=== PATIENT | female | born 1980 | race African-American/Black ===

== ENCOUNTER 2021-05-21 21:15 | Emergency (ER) | payer OTHER, SELFPAY ==
[2021-05-21 21:31] VITALS: BP 159/91; PULSE 79; RESP 16; TEMP 36.9; O2SAT 100; BMI 31.5
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
[2021-05-21] MEDS: Cyclobenzaprine HCl 10 MG TABLET PO (22:26)
[2021-05-21] MEDS: Ibuprofen 600 MG TABLET PO (22:26)
[2021-05-21 22:27] VITALS: BP 160/97; PULSE 79; RESP 16; TEMP 36.8; O2SAT 100
== END 2021-05-21 22:33 | disposition home or self-care (01) ==
PROVIDERS: Emergency Provider Internal Medicine
DX: S19.9XXA Unspecified injury of neck, initial encounter (principal); M54.2 Cervicalgia; V43.52XA Car driver injured in collision with other type car in traffic accident, initial encounter; Y93.9 Activity, unspecified; Y92.410 Unspecified street and highway as the place of occurrence of the external cause; Y99.9 Unspecified external cause status; Z79.899 Other long term (current) drug therapy
CPT/HCPCS: 99283; 99284

== ENCOUNTER 2023-03-29 10:26 | Outpatient (REF) | payer OTHER, SELFPAY ==
[2023-03-29 11:15] LABS: MANUAL DIFF FLAG NO
[2023-03-29 11:39] LABS: Basophils Percent Auto 0.5 % (0-2); Eosinophils Absolute Auto 0.1 X10*3/uL (0.0-0.4); Eosinophils Percent Auto 1.5 % (0-4); Hematocrit 38.8 % (37.0-47.0); Hemoglobin 12.7 g/dl (12.0-16.0); Imm Gran Abs Auto 0.03 X10*3/uL (0.00-0.03); Imm Gran Pct Auto 0.8 % (0.0-0.4); Lymphocytes Absolute Auto 0.4 X10*3/uL (1.2-4.9); Lymphocytes Percent Auto 9.2 % (20-40); Mean Corpuscular HGB Conc 32.7 g/dl (31.0-35.0); Mean Corpuscular Hemoglobin 33.2 pg (27.0-33.0); Mean Corpuscular Volume 101.6 fL (80.0-98.0); Mean Platelet Volume 9.6 fL (9.4-12.3); Monocytes Absolute Auto 0.6 X10*3/uL (0.1-1.2); Monocytes Percent Auto 14.8 % (2-11); Neutrophils Absolute Auto 2.9 x10*3/uL (2.0-8.3); Neutrophils Percent Auto 73.2 % (45-73); Platelet Count 322 X10*3/uL (160-400); Red Blood Count 3.82 X10*6/uL (4.20-5.50); Red Cell Distribution Width 14.2 % (11.0-16.0); White Blood Count 3.9 X10*3/uL (4.8-10.8)
[2023-03-29 11:53] LABS: Estimated Average Glucose 91 mg/dL; Hemoglobin A1c % 4.8 %
[2023-03-29 12:32] LABS: ~HepC Num1 0.07 S/CO (0.00-0.79); ~Hepatitis C Antibody Nonreactive (Nonreactive)
[2023-03-29 12:33] LABS: HIV AB/AG Nonreactive (Nonreactive)
[2023-03-29 12:40] LABS: TSH reflex Free T4 0.39 uIU/mL (0.32-4.0)
[2023-03-29 12:47] LABS: Alanine Aminotransferase 20 U/L (0-31); Albumin Level 3.9 g/dL (3.5-5.0); Alkaline Phosphatase 80 U/L (39-117); Anion Gap 11 (12-20); Aspartate Amino Transferase 28 U/L (5-31); Bilirubin Direct 0.1 mg/dL (0.0-0.5); Bilirubin Total 0.3 mg/dL (0.0-1.0); Blood Urea Nitrogen 17 mg/dL (9-16); Calcium 9.1 mg/dL (8.4-10.2); Carbon Dioxide 25 mmol/L (22-29); Chloride 108 mmol/L (96-108); Cholesterol 164 mg/dL; Estimated Glomerular Filt Rate > 60; Glucose Random 89 mg/dL (60-115); HDL Cholesterol 58 mg/dL; LDL Cholesterol Calculated 89 mg/dl; Potassium 4.4 mmol/L (3.3-5.1); Sodium 140 mmol/L (135-145); Total Protein 7.4 g/dL (6.5-8.0); Triglycerides 85 mg/dL
== END 2023-03-29 10:27 | disposition home or self-care (01) ==
LOC: HO.HHCL 10:26
PROVIDERS: PCP Internal Medicine; Visit Provider Student in an Organized Health Care Education/Training Program
DX: Z00.00 Encounter for general adult medical examination without abnormal findings (principal); Z11.4 Encounter for screening for human immunodeficiency virus [HIV]; E66.9 Obesity, unspecified; I10 Essential (primary) hypertension
CPT/HCPCS: 36415; 80048; 80061; 80076; 83036; 84443; 85025; 86803; 87389

== ENCOUNTER 2025-07-20 13:46 | Outpatient (REF) | payer SELFPAY ==
--- OUTSIDE RECORDS SUMMARY | 2025-07-20 14:00 | XMS_ITS | Encounter Summary ---
Author Organization [facility] Address [address] [place] [address] Care Team Providers Care Investment Banking Analyst Name Role Phone Yanelis Marie MD Primary Care Provide r Reason for Referral * Imaging (Routine) - Authorized Specialty Diagnoses / Procedures Referred By Contac t Referred To Contact Radiology Diagnoses Encounter for screening mammogram for malignant neoplasm of breast Procedures BI Mammogram Screening Tomosynthesis Bilateral Yanelis Marie MD [address] [place] [address] Phone: tel: fax: [address] Phone: tel: fax: Referral ID Status Reason Start Date Expiration Date V isits Requested Visits Authorized [id number] Authorized 07/20/2025 07/20/2026 1 1 * Consultation (Routine) - Authorized Specialty Diagnoses / Procedures Referred By Contac t Referred To Contact Pharmacy Diagnoses Tobacco dependence Yanelis Marie MD [address] [place] [address] Phone: tel: fax: Referral ID Status Reason Start Date Expiration Date Visits Requested Visits Authorized [id number] Authorized Consult and Treat 07/20/2025 07/20/2026 6 6 Encounter Details Date Type Department Care Team (Late st Contact Info) Description 07/20/2025 2:00 PM EST Office Visit [facility] [address] [place] [address] Yanelis Marie MD [address] [place] [address] Screening for colon cancer (Primary Dx); Tobacco dependence; Encounter for screening mammogram for malignant neoplasm of breast; Class 1 obesity due to excess calories with serious comorbidity and body mass index (BMI) of 32.0 to 32.9 in adult; Encounter for preventive care; Dietary counseling; Exercise counseling Social History Tobacco Use Types Packs/Day Years Used Date Smoking Tobacco: Every Day Cigarettes Passive Smoke Exposure: Current Smokeless Tobacco: Never Depression Answer Date Recorded Patient Health Questionnaire-9 Score 7 07/20/2025 Patient Health Questionnaire-9 Score 7 07/20/2025 Last PHQ-9: Questionnaire Data Not on file 1 09/19/2024 Housing Stability Answer Date Recorded What is your housing situation today? I have jaden perez 07/20/[address] you li ve. Do you have problems with any of the following? None of the above 07/20/2025 Food Insecurity Answer Date Recorded Within the past 12 months, y ou worried that your food would run out before you got money to buy more: Never True 07/20/2025 Within the past 12 months,th e food you bought just didn't last and you didn't have enough money to get more: Never True Transportation Answer Date Recorded In the past 12 months, has l ack of transportation kept you from medical appts, meetings, work or from getting things needed for daily living? No 07/20/2025 Utilities Answer Date Recorded In the past 12 months, has t he electric, gas, oil or water company threatened to shut off services in your home? Yes 07/20/2025 Depression Answer Date Recorded Patient Health Questionnaire-2 Score 2 07/20/2025 Internet Access Answer Date Recorded Internet Access Q1 Yes 07/20/2025 Internet Access Q2 Not on file 07/20/2025 Comments Unknown Sex and Gender Information Value Date Recorded Sex Assigned at Female 07/06/2022 10:21 AM EDT Legal Sex Female 10:21 AM EDT Gender Identity Female 07/06/2022 10:21 AM EDT Sexual Orientation Straight 07/06/2022 10 :21 AM EDT documented as of this encounter Last Filed Vital Signs Vital Sign Reading Time Taken Comments Blood Pressure 142/94 07/20/2025 2:12 PM EST Pulse 68 07/20/2025 2:12 PM EST Temperature 36.5 C (97.7 F) 07/20/2025 2:12 PM EST Respiratory Rate 18 07/20/2025 2:12 PM EST Oxygen Saturation - - Inhaled Oxygen Concentration - - Weight 104 kg (229 lb 6.4 oz) 07/20/2025 2:12 PM EST Height 177.8 cm (5' 10 ) 07/20/2025 2:12 PM EST Body Mass Index 32.92 07/20/2025 2:12 PM EST documented in this encounter Functional Status * Over the past 2 weeks, how often have you been bothered by any of the following problems? Question Answer Date of Assessment Author Patient Health Questionnaire-2 Score 2 07/07 2:52 PM EST Tasha Martinez MA * Little interest or pleasure in doing things Answer Date of Assessment Author Several days 07/20/2025 2:52 PM Mic Poe ra, [place] * Feeling down, depressed, or hopeless Answer Date of Assessment Author Several days 07/20/2025 2:52 PM Mic Poe ra, [place] * Trouble falling or staying asleep, or sleeping too much Answer Date of Assessment Author Several days 07/20/2025 2:52 PM Mic Poe ra, [place] * Feeling tired or having little energy Answer Date of Assessment Author Several days 07/20/2025 2:52 PM Mic Poe ra, [place] * Poor appetite or overeating Answer Date of Assessment Author Several days 07/20/2025 2:52 PM Mic Poe ra, [place] * Feeling bad about yourself - or that you are a failure or have let yourself or your family down Answer Date of Assessment Author Several days 07/20/2025 2:52 PM Mic Poe ra, [place] * Trouble concentrating on things, such as reading the newspaper or watching television Answer Date of Assessment Author Several days 07/20/2025 2:52 PM Mic Poe ra, [place] * Moving or speaking so slowly that other people could have noticed? Or the opposite - being so fidgety or restless that you have been moving around a lot more than usual. Answer Date of Assessment Author Not at all 07/20/2025 2:52 PM Mic Poe ra, [place] * Thoughts that you would be better off or hurting yourself in some way Answer Date of Assessment Author Not at all 07/20/2025 2:52 PM Mic Poe ra, [place] * Patient Health Questionnaire-9 Score Answer Date of Assessment Author 7 07/20/2025 2:52 PM Mic Poe ra, [place] documented as of this encounter Progress Notes * Yanelis Pennington MD - 07/20/2025 2:00 PM EST SUBJECTIVE: Sarah Howard is a 45 y.o. year old female who presents for Physical . 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 Diet:regular Exercise:sedentary LMP:stop having her menstrual period after chemo (cervical cancer) Pap Smear:she had a PAP done this year when she went to her oncology appointment Cologuard ordered Mammogram ordered today Hospitalizations/Surgeries: on chart Eye Care:declines referral Dental Care:up to date PMHx:on chart FMHx:on chart Immunizations: Declines immunizations Sarah Howard, 45 years Weight Management - Expressed desire to lose weight and requested Ozempic or Zepbound for weight loss - Insurance denied coverage for Ozempic and Zepbound - Previous prescription for weight loss medication given at last physical, but insurance did not cover - Reports difficulty eating healthy foods and lack of exercise due to pain from inactivity - Interested in trying phentermine and Topamax for weight loss Gynecologic History - History of cervical cancer with surgical removal of cervix - No current menstruation since treatment - Continues to undergo Pap smears - Last oncology visit occurred earlier this year (2024) Smoking - Smokes approximately one pack of cigarettes per day - Expressed interest in quitting smoking and requested nicotine patch COVID-19 - History of COVID-19 infection Misc - No new surgeries since last visit - No current vision issues or need for glasses - Recent dental visit at [facility] Social History Social History Narrative Not on file Problem List[1] Depressive disorder Essential hypertension Vitamin D deficiency Abnormal uterine bleeding (AUB) Cervical cancer (CMS/HCC) (HCC) Cervical lesion Class 1 obesity Herpes simplex virus (HSV) infection Papanicolaou smear of cervix with high grade squamous intraepithelial lesion (HGSIL) Tubo-ovarian abscess Vaginal trichomoniasis Tobacco dependence Encounter for preventative adult health care examination Encounter for preventive care Chronic left hip pain Class 1 obesity due to excess calories with serious comorbidity and body mass index (BMI) of 32.0 to 32.9 in adult Encounter for screening mammogram for malignant neoplasm of breast BMI 34.0-34.9,adult Hematuria Tobacco user Family History[2] Review of Systems Constitutional: Negative. HENT: Negative. Respiratory: Negative. Cardiovascular: Negative. OBJECTIVE: Vitals: 07/20/25 1412 BP: (!) 142/94 BP Location: Left arm Patient Position: Sitting BP Cuff Size: Adult Pulse: 68 Resp: 18 Temp: 97.7 ??F (36.5 ??C) TempSrc: Oral Weight: 229 lb 6.4 oz (104 kg) Height: 5' 10 (1.778 m) Physical Exam Constitutional: Appearance: Normal appearance. Cardiovascular: Rate and Rhythm: Normal rate and regular rhythm. Pulmonary: Effort: Pulmonary effort is normal. Breath sounds: Normal breath sounds. Abdominal: General: Abdomen is flat. Palpations: Abdomen is soft. Musculoskeletal: Right lower leg: No edema. Left lower leg: No edema. Neurological: Mental Status: She is alert. Follow Up: No follow-ups on file. Medications Ordered Prior to Encounter[3] Problem List Items Addressed This Visit Tobacco dependence Relevant Medications nicotine (Nicoderm CQ) 21 MG/24HR patch Other Relevant Orders Referral to Pharmacy CDTM Encounter for screening mammogram for malignant neoplasm of breast Relevant Orders BI Mammogram Screening Tomosynthesis Bilateral Class 1 obesity due to excess calories with serious comorbidity and body mass index (BMI) of 32.0 to 32.9 in adult Relevant Medications phentermine 15 MG capsule topiramate (Topamax) 25 MG tablet Encounter for preventive care Other Visit Diagnoses Screening for colon cancer - Primary Relevant Orders Cologuard?? colon cancer screening Dietary counseling Relevant Medications phentermine 15 MG capsule topiramate (Topamax) 25 MG tablet Exercise counseling Relevant Medications phentermine 15 MG capsule topiramate (Topamax) 25 MG tablet Tobacco dependence: - Tobacco dependence present, patient smokes approximately one pack per day and expresses readinessto quit. - Prescribed nicotine patch for smoking cessation. Referral placed to smoking cessation support team for follow-up and additional management. Screening for colon cancer: - Colon cancer screening indicated due to age. - Recommended home-based colorectal cancer screening with Cologuard kit. Provided instructions and advised use of online video for guidance. Encounter for screening mammogram for malignant neoplasm of breast: - Breast cancer screening due, no prior mammogram reported. - Ordered screening mammogram. Class 1 obesity due to excess calories with serious comorbidity and body mass index (BMI) of 32.0 to 32.9 in adult: - Class 1 obesity present, patient desires weight loss and has insurance denial for GLP-1 agonists.Phentermine prescribed for weight loss. Topiramate prescribed as adjunct therapy to enhance weight loss effect. - Prescribed phentermine and topiramate. Advised to take topiramate at bedtime. Scheduled follow-upphone appointment to monitor response and side effects. Instructed to weigh self at home prior to follow-up. Plan to adjust medication or submit pre-authorization for alternative therapy if inadequate response after 3 months. - Risks and side effects: Discussed potential side effects of phentermine including palpitations, anxiety, insomnia, and dry mouth. Discussed possible drowsiness with topiramate and advised bedtime dosing. Encounter for preventive care: - Preventive care addressed during visit. - Reviewed need for dental and vision care. Offered influenza, COVID-19, and pneumococcal vaccines;patient declined. Provided physical summary for work and instructions for obtaining official physical documentation from medical records. [1] Patient Active Problem List Diagnosis Depressive disorder Essential hypertension Vitamin D deficiency Abnormal uterine bleeding (AUB) Cervical lesion Class 1 obesity Herpes simplex virus (HSV) infection Papanicolaou smear of cervix with high grade squamous intraepithelial lesion (HGSIL) Tubo-ovarian abscess Vaginal trichomoniasis Tobacco dependence Encounter for preventative adult health care examination Encounter for preventive care Chronic left hip pain Class 1 obesity due to excess calories with serious comorbidity and body mass index (BMI) of 32.0 to 32.9 in adult Encounter for screening mammogram for malignant neoplasm of breast BMI 34.0-34.9,adult Hematuria Tobacco user [2] No family history on file. [3] Current Outpatient Medications on File Prior to Visit Medication Sig Dispense Refill Blood Pressure kit 1 each 1 (one) time per week. 1 kit 0 buPROPion SR (Wellbutrin SR) 150 MG 12 hr tablet Take 1 tablet by oral route every morning for 3 days. If tolerating well may increase to twice daily 60 tablet 1 Diclofenac Sodium 1 % gel Apply to left shoulder bid prn pain 50 g 1 losartan (Cozaar) 50 MG tablet Take 1 tablet (50 mg) by mouth Once per day. 30 tablet 3 nicotine (Nicoderm, Step 1) 21 MG/24HR patch Place 1 patch on the skin 1 (one) time each day at thesame time. 30 patch 11 nicotine polacrilex (Nicorette) 4 MG gum Chew 1 each (4 mg) if needed for smoking cessation. 100 each 2 Tirzepatide-Weight Management (Zepbound) 2.5 MG/0.5ML solution auto-injector Inject 0.5 mL (2.5 mg)under the skin 1 (one) time per week. 2 mL 3 Tirzepatide-Weight Management (Zepbound) 5 MG/0.5ML solution auto-injector Inject 0.5 mL (5 mg) under the skin 1 (one) time per week. 2 mL 0 No current facility-administered medications on file prior to visit. documented in this encounter Plan of Treatment Upcoming Encounters Date Type Department Care Team (Late st Contact Info) Description 08/28/2025 2:30 PM EST Telemedicine [facility] [address] [place] [address] Yanelis Marie MD [address] [place] [address] Scheduled Orders Name Type Priority Associated Diagnoses Orde r Schedule Cologuard colon cancer screening Lab Routine Screening for colon cancer Ordered: 07/20/2025 BI Mammogram Screening Tomosynthesis Bilateral Imaging Routine Encounter for screening mammogram for malignant neoplasm of breast Expected: 07/20/2025, Expires: 09/19/2026 Scheduled Referrals Name Type Priority Associated Diagnoses Orde r Schedule Referral to Pharmacy CDTM Outpatient Referral Routine Tobacco dependence Ordered: 07/20/2025 documented as of this encounter Visit Diagnoses Diagnosis Screening for colon cancer- Primary Special screening for malignant neoplasms, colon Tobacco dependence Tobacco use disorder Encounter for screening mammogram for malignant neoplasm of breast Class 1 obesity due to excess calories with serious comorbidity and body mass index (BMI) of 32.0 to 32.9 in adult Encounter for preventive care Dietary counseling Dietary surveillance and counseling Exercise counseling documented in this encounter Additional Health Concerns Assessment Noted Time PHQ-9 Depression Total Score: 7 07/20/20 25 2:52 PM EST documented as of this encounter Care Teams Investment Banking Analyst Relationship Specialty Start Date End Date Yanelis Marie MD [address] [place] [id number] PCP - General Family Medicine 05/18/18 documented as of this encounter
[2025-07-20 16:23] LABS: Hematocrit 41.5 % (37.0-47.0); Hemoglobin 13.4 g/dl (12.0-16.0); Mean Corpuscular HGB Conc 32.3 g/dl (31.0-35.0); Mean Corpuscular Hemoglobin 29.8 pg (27.0-33.0); Mean Corpuscular Volume 92.4 fL (80.0-98.0); NRBC Abs Auto 0.000 X10*3/uL (0.0-0.012); NRBC Pct Auto 0.0 /100WBC (0.0-0.2); Platelet Count 372 X10*3/uL (160-400); Red Blood Count 4.49 X10*6/uL (4.20-5.50); White Blood Count 6.7 X10*3/uL (4.8-10.8)
[2025-07-20 16:34] LABS: Microalbum/Creatinine Ratio Ur 14.9 ug/mg cr (<30)
[2025-07-20 16:57] LABS: Alanine Aminotransferase 17 U/L (0-31); Albumin Level 4.4 g/dL (3.5-5.0); Alkaline Phosphatase 120 U/L (39-117); Anion Gap 11 (12-20); Aspartate Amino Transferase 30 U/L (5-31); Blood Urea Nitrogen 13 mg/dL (9-16); Calcium 9.1 mg/dL (8.4-10.2); Carbon Dioxide 27 mmol/L (22-29); Chloride 105 mmol/L (96-108); Cholesterol 157 mg/dL (<200); Estimated Glomerular Filt Rate > 60; HDL Cholesterol 59 mg/dL (>40); Potassium 4.2 mmol/L (3.3-5.1); Sodium 139 mmol/L (135-145); Total Protein 7.8 g/dL (6.5-8.0); Triglycerides 113 mg/dL (<150)
[2025-07-20 17:00] LABS: Free T4 (Free Thyroxine) 0.93 ng/dL (0.71-1.85); Thyroid Stimulating Hormone 0.84 uIU/mL (0.32-4.0)
--- OUTSIDE RECORDS SUMMARY | 2025-07-20 20:07 | XMS_ITS | Encounter Summary ---
Author Organization [facility] [employer] Address [address] [place] [address] Care Team Providers Care Armored Cable Machine Operator Name Role Phone Yanelis Marie MD Primary Care Provide r Reason for Visit * Reason Comments Med Refill Encounter Details Date Type Department Care Team ([facility] Contact Info) Description 07/20/2025 Refill [facility] [address] [place] [address] Mildred Juarez DO [address] [place] [address] Essential hypertension Social History Tobacco Use Types Packs/Day Years [...] AM EDT documented as of this encounter Functional Status * Over the past 2 weeks, how often have you been bothered by any of the following problems? Question Answer Date of Assessment Author Patient Health Questionnaire-2 Score 2 07/07 2:52 PM Tasha Poe MA * Little interest or pleasure in [...] Author Not at all 07/20/2025 2:52 PM EST Mic Martinez ra, [place] * Thoughts that you would be better off or hurting yourself in some way Answer Date of Assessment Author Not at all 07/20/2025 2:52 PM EST Mic Martinez ra, [place] * Patient Health Questionnaire-9 Score Answer Date of Assessment Author 7 07/20/2025 2:52 PM Mic Poe ra, [place] documented as of this encounter Plan of Treatment Upcoming Encounters Date Type Department Care Team (Late st Contact Info) Description 08/28/2025 2:30 PM EST Telemedicine [facility] [address] [place] [address] Yanelis Marie MD [address] [place] [address] documented as of this encounter Visit Diagnoses Diagnosis Essential hypertension Unspecified essential hypertension documented in this encounter Additional Health Concerns Assessment Noted Time PHQ-9 Depression Total Score: 7 07/20/20 25 2:52 PM EST documented as of this encounter Care Teams Armored Cable Machine Operator Relationship Specialty Start Date End Date Yanelis Marie MD [address] [place] [address] PCP - General Family Medicine 05/18/18 documented as of this encounter
--- OUTSIDE RECORDS SUMMARY | 2025-07-20 20:07 | XMS_ITS | Encounter Summary ---
Author Organization [employer] Address [address] [facility] [address] [place] [address] Care Team Providers Care Donkey Doctor Name Role Phone Yanelis Marie MD Primary Care Provide r Encounter Details Date Type Department Care Team (Latest Contact Info) Description 07/20/2025 Travel Social History Tobacco Use Types Packs/Day Years [...] of Assessment Author 7 07/20/2025 2:52 PM EST Mic Martinez ra, [place] documented as of this encounter Plan of Treatment Upcoming Encounters Date Type Department Care Team (Late st Contact Info) Description 08/28/2025 2:30 PM EST Telemedicine [facility] [address] [place] [address] Yanelis Marie MD [address] [place] [address] documented as of this encounter Visit Diagnoses Not on filedocumented in this encounter Additional Health Concerns Assessment Noted Time PHQ-9 Depression Total Score: 7 07/20/20 25 2:52 PM EST documented as of this encounter Care Teams Donkey Doctor Relationship Specialty Start Date End Date Yanelis Marie MD [address] [place] [id number] PCP - General Family Medicine 05/18/18 documented as of this encounter
--- OUTSIDE RECORDS SUMMARY | 2025-07-20 20:07 | XMS_ITS | Encounter Summary ---
Author Organization [employer] Address [address] [place] [address] Care Team Providers Care Tag Maker Name Role Phone Yanelis Marie MD Primary Care Provide r Reason for Visit * Reason Onset Date Comments Med Refill 06/12/2025 Encounter Details Date Type Department Care Team ([facility] st Contact Info) Description 06/12/2025 Refill [facility] MEDICINE [address] [place] [address] Yanelis Marie MD [address] [place] [address] Social History Tobacco Use Types Packs/Day Years Used Date Smoking Tobacco: Every Day Cigarettes Passive Smoke Exposure: Current Smokeless Tobacco: Never Depression Answer Date Recorded Patient Health Questionnaire-9 Score 0 03/30/2024 Patient Health Questionnaire-9 Score 0 03/30/2024 Last PHQ-9: Questionnaire Data Not on file 0 03/30/2024 Housing Stability Answer Date Recorded What is your housing situation today? I have jaden perez 03/30/[address] you li ve. Do you have problems with any of the following? None of the above 03/30/2024 Food Insecurity Answer Date Recorded Within the past 12 months, y ou worried that your food would run out before you got money to buy more: Never True 03/30/2024 Within the past 12 months,th e food you bought just didn't last and you didn't have enough money to get more: Never True Transportation Answer Date Recorded In the past 12 months, has l ack of transportation kept you from medical appts, meetings, work or from getting things needed for daily living? No 03/30/2024 Utilities Answer Date Recorded In the past 12 months, has t he electric, gas, oil or water company threatened to shut off services in your home? No 03/30/2024 Depression Answer Date Recorded Patient Health Questionnaire-2 Score 0 03/30/2024 Internet Access Answer Date Recorded Internet Access Q1 No 05/05/2024 Internet Access Q2 I do not want or need it 04/08 Comments Unknown Sex and Gender Information Value Date Recorded Sex Assigned at Female 07/06/2022 10:21 AM EDT Legal Sex Female 10:21 AM EDT Gender Identity Female 07/06/2022 10:21 AM EDT Sexual Orientation Straight 07/06/2022 10 :21 AM EDT documented as of this encounter Miscellaneous Notes * Telephone Encounter - Mildred Ludwig LPN - 06/12/2025 9:33 AM EDT Last seen 04/19/25. * Telephone Encounter - Kellie Kumar - 06/12/2025 9:28 AM EDT TC from pt requesting medication refill. Medications needing refill : - Tirzepatide-Weight Management (Zepbound) 2.5 MG/0.5ML solution auto-injector To be sent to: - [id number] - [place] - [address] [facility] documented in this encounter Plan of Treatment Upcoming Encounters Date Type Department Care Team (Late st Contact Info) Description 08/28/2025 2:30 PM EST Telemedicine [facility] MEDICINE [address] [place] [address] Yanelis Marie MD [address] [place], [place] [id number] documented as of this encounter Visit Diagnoses Not on filedocumented in this encounter Additional Health Concerns Assessment Noted Time PHQ-9 Depression Total Score: 0 03/30/20 24 1:29 PM EDT documented as of this encounter Care Teams Tag Maker Relationship Specialty Start Date End Date Yanelis Marie MD [address] [place] [address] PCP - General Family Medicine 05/18/18 documented as of this encounter
--- OUTSIDE RECORDS SUMMARY | 2025-07-20 20:07 | XMS_ITS | Clinical Summary ---
Author Organization [employer] Address [address] [facility] [address] [place] [address] Care Team Providers Care Kiln Repairer Name Role Phone Yanelis Marie MD Primary Care Provide r Allergies No known active allergies Medications nicotine polacrilex (Nicorette) 4 MG gum Chew 1 each (4 mg) if needed for smoking cessation. 100 each 2 3 Active nicotine (Nicoderm, Step 1) 21 MG/24HR patchIndications: Nicotine Dependence Place 1 patch on the skin 1 (one) time each day at the same time. 30 patch 11 3 Active buPROPion SR (Wellbutrin SR) 150 MG 12 hr tabletIndications :Tobacco dependence Take 1 tablet by oral route every morning for 3 days. If tolerating well may increase to twice daily 60 tablet 1 4 Active Tirzepatide-Weigh t Management (Zepbound) 2.5 MG/0.5ML solution auto-injector Inject 0.5 mL (2.5 mg) under the skin 1 (one) time per week. 2 mL 3 5 Active Blood Pressure kit 1 each 1 (one) time per week. 1 kit 5 Active Diclofenac Sodium 1 % gelIndications:Ac [place] pain of left shoulder Apply to left shoulder bid prn pain 50 g 1 5 Active losartan (Cozaar) 50 MG tabletIndications :Essential hypertension Take 1 tablet (50 mg) by mouth Once per day. 30 tablet 3 5 04/19/20 26 Active Tirzepatide-Weigh t Management (Zepbound) 5 MG/0.5ML solution auto-injectorIndi cations:Class 1 obesity due to excess calories with serious comorbidity and body mass index (BMI) of 32.0 to 32.9 in adult Inject 0.5 mL (5 mg) under the skin 1 (one) time per week. 2 mL 5 Active nicotine (Nicoderm CQ) 21 MG/24HR patchIndications: Tobacco dependence Place 1 patch on the skin 1 (one) time each day at the same time. 30 patch 5 08/19/20 25 Active phentermine 15 MG capsuleIndication s:Class 1 obesity due to excess calories with serious comorbidity and body mass index (BMI) of 32.0 to 32.9 in adult Take 1 capsule (15 mg) by mouth before breakfast. 30 capsule 1 5 09/18/19 26 Active topiramate (Topamax) 25 MG tabletIndications :Class 1 obesity due to excess calories with serious comorbidity and body mass index (BMI) of 32.0 to 32.9 in adult Take 1 tablet (25 mg) by mouth every 12 (twelve) hours. 60 tablet 5 07/20/20 26 Active Active Problems Problem Noted Date Diagnosed Date Hematuria 07/19/2025 Tobacco user 07/19/2025 BMI 34.0-34.9,adult 12/05/2024 Encounter for preventive care 03/30/2024 Assessment & Plan (03/30/2024 4:15 PM EDT): See HPI Chronic left hip pain 03/30/2024 Class 1 obesity due to exces s calories with serious comorbidity and body mass index (BMI) of 32.0 to 32.9 in adult 03/30/2024 Encounter for screening mamm ogram for malignant neoplasm of breast 03/30/2024 Encounter for preventative adult health care exa mination 03/29/2023 Assessment & Plan (03/29/2023 10:16 AM EDT): Please refer to HPI Abnormal uterine bleeding (AUB) 01/01/2023 Cervical lesion 01/01/2023 Class 1 obesity 01/01/2023 Assessment & Plan (03/29/2023 10:14 AM EDT): Today extensive discussion was done about life style modifications I advise healthy diet (low calorie) and cardiovascular exercise Herpes simplex virus (HSV) infection 01/01/2023 Papanicolaou smear of cervix with high grade squamous intraepithelial lesion (HGSIL) 01/01/2023 Tubo-ovarian abscess 01/01/2023 Vaginal trichomoniasis 01/01/2023 Tobacco dependence 01/01/2023 Overview (01/01/2023): Highly motivated to quit. Currently at 20 cig a day. Start nicotine patch with nicotine gum. Assessment & Plan (05/07/2023 2:00 PM EDT): Currently at 5 cigarettes daily, patient is cutting down She was congratulated and encourage to continue with good work Assessment & Plan (03/29/2023 10:15 AM EDT): Patient has cut down to 10 cigarettes, she will continue with nicotine patches Assessment & Plan (02/11/2023 12:12 PM EDT): Patient will like to continue with current interventions Assessment & Plan (01/01/2023 9:18 AM EDT): Highly motivated to quit. Currently at 20 cig a day. Start nicotine patch with nicotine gum. Depressive disorder 11/19/2022 Assessment & Plan (03/30/2024 4:15 PM EDT): Counseling done Assessment & Plan (03/29/2023 10:14 AM EDT): Patient reports she feels stable Continue with current interventions RTC 3 months Essential hypertension 11/19/2022 Overview (01/01/2023): Start Amlodipine 5 mg 01/01/23. Continue lisinopril 20mg. Assessment & Plan (04/19/2025 10:59 AM EDT): -refilled medication 04/19/25 Orders: losartan (Cozaar) 50 MG tablet; Take 1 tablet (50 mg) by mouth Once per day. Assessment & Plan (03/30/2024 4:15 PM EDT): Maintenance: BMP: ordered Lipid Panel: ordered ASCVD Risk: Calculate pending updated labs - Aerobic exercise to reduce BP. Initial goal of 30 min walk 3-5x/week. Increase as tolerated. - low-sodium diet (goal: <2g/day) and heart healthy diet such as DASH to reduce BP and prevent ASCVD. - Home BP monitoring 1-2 x day with goal of <140/90. - Seek immediate medical attention for chest pain, palpitations, SOB, syncope, or sudden changes in mental status. - Do not change or discontinue current prescriptions without first consulting health care provider Assessment & Plan (05/07/2023 1:59 PM EDT): BP today 126/88mmh (home BP kit), at goal C/w same medication regimen and low Na diet Assessment & Plan (02/11/2023 12:11 PM EDT): - Aerobic exercise to reduce BP. Initial goal of 30 min walk 3-5x/week. Increase as tolerated. - low-sodium diet (goal: <2g/day) and heart healthy diet such as DASH to reduce BP and prevent ASCVD. - Home BP monitoring 1-2 x day with goal of <140/90. - Seek immediate medical attention for chest pain, palpitations, SOB, syncope, or sudden changes in mental status. - Do not change or discontinue current prescriptions without first consulting health care provider Assessment & Plan (01/01/2023 9:17 AM EDT): Start Amlodipine 5 mg 01/01/23. Continue lisinopril 20mg. Vitamin D deficiency 11/19/2022 Resolved Problems Problem Noted Date Diagnosed Date Resolved Date Cervical cancer (CMS/HCC) 01/01/2023 Assessment & Plan (03/29/2023 10:13 AM EDT): Continue to follow with [facility] oncologist, she will do PAPs and mammograms with them Encounters Date Type Department Care Team Description 07/20/2025 2:00 PM EST Office Visit [facility] [address] [place] [phone] Yanelis Marie MD Screening for colon cancer (Primary Dx); Tobacco dependence; Encounter for screening mammogram for malignant neoplasm of breast; Class 1 obesity due to excess calories with serious comorbidity and body mass index (BMI) of 32.0 to 32.9 in adult; Encounter for preventive care; Dietary counseling; Exercise counseling 07/20/2025 Refill [facility] [address] [place] [phone] Mildred Juarez DO Essential hypertension 07/20/2025 Travel 07/19/[address] [phone] Yanelis Marie MD chart prep 07/13/2025 Patient Outreach [facility] [address] [place] [address] Yanelis Marie MD Pre-visit Planning ([facility] unable to reach [facility] ) 06/15/[address] [phone] Yanelis Marie MD Prior Authorization (PA: Zepbound) 06/12/2025 Orders Only [facility] [address] [place] [phone] Yanelis Marie MD Class 1 obesity due to excess calories with serious comorbidity and body mass index (BMI) of 32.0 to 32.9 in adult (Primary Dx) 06/12/2025 Refill [facility] [address] [place] [phone] Yanelis Marie MD 05/16/[address] [address] Yanelis Marie MD Call Back Request; Prior Authorization (PA: Zepbound) 04/20/2025 Telephone [facility] [address] [place], [place] [phone] Yanelis Marie MD OCT RECALL 04/19/2025 10:40 AM EDT Office Visit [facility] [address] [phone] Dianna Dickerson MD Essential hypertension (Primary Dx); Acute pain of left shoulder 04/19/2025 Travel from Last 3 Months Immunizations Immunization Administration Dates Next Due Hep A, Adult 12/14/2012 Influenza injectable quadriv alent IIV4 with preservative 06/02/2018,10/04/2017 Influenza injectable quadrivalent preservative f ree 08/12/2019 Influenza, Split (incl. purified surface antigen ) 06/23/2013 MMR 08/24/2011 Td (adult), 5 Lf tetanus tox oid, preservative free, adsorbed 11/20/2013 Tdap 08/26/2011 Varicella 08/24/2011 Social History Tobacco Use Types Packs/Day Years Used Date Smoking Tobacco: Every Day Cigarettes Passive Smoke Exposure: Current Smokeless Tobacco: Never Tobacco Cessation:Ready to Q uit: Not Asked; Counseling Given: Not Answered Depression Answer Date Recorded Patient Health Questionnaire-9 [...] Orientation Straight 07/06/2022 10 :21 AM EDT Last Filed Vital Signs Vital Sign Reading Time Taken Comments Blood Pressure 142/94 07/20/2025 2:12 PM EST Pulse 68 07/20/2025 2:12 PM EST Temperature 36.5 C (97.7 F) 07/20/2025 2:12 PM EST Respiratory Rate 18 07/20/2025 2:12 PM EST Oxygen Saturation 99% 04/19/2025 10:42 AM EDT Inhaled Oxygen Concentration - - Weight 104 kg (229 lb 6.4 oz) 07/20/2025 2:12 PM EST Height 177.8 cm (5' 10 ) 07/20/2025 2:12 PM EST Body Mass Index 32.92 07/20/2025 2:12 PM EST Plan of Treatment Upcoming Encounters Date Type Department Care Team (Late st Contact Info) Description 08/28/2025 2:30 PM EST Telemedicine [facility] [address] [place] [address] Yanelis Marie MD [address] [place] [address] Health Maintenance Due Date Last Done Comments CT Colonography 1980 Colonoscopy 1980 Colorectal Cancer Screening 1980 FIT DNA/Cologuard 1980 FIT 1980 FOBT 1980 Sigmoidoscopy 1980 Family Planning (PISQ) 1995 HPV Vaccines (1 - 3-dose series) 1995 Hepatitis B Vaccines (1 of 3 - 19+ 3-dose series) 1999 Pneumococcal Vaccine: Pediatrics (0 to 5 Years) and At-Risk Patients (6 to 49) Years (1 of 2 - PCV) 1999 Pap Smear 2001 Cervical Cancer Screening 2010 HPV/Cotest 2010 Mammogram 2020 DTaP/Tdap/Td Vaccines (3 - Td or Tdap) 11/21/2023 11/20/2013, 08/26/2011 COVID-19 Vaccine (4 - season) 2025 11/04/2021, 12/17/2020, 11/24/2020 Influenza Vaccine (#1) 2025 9, 06/02/2018, 10/04/2017, Additional history exists Disability Screening 04/19/2026 04/19/2025 Alcohol/Substance Use Screening 07/20/2026 07/20/2025 Depression Screening 07/20/2026 07/20/2025, 07/20/20 25 SDOH Screening 07/20/2026 07/20/2025 Tobacco Screening 07/20/2026 07/20/2025 Zoster Vaccines (1 of 2) 2030 Lipid Panel 07/20/2030 07/20/2025, 03/07, 11/10/2021 RSV Patients and Patients Aged 60 years or older (1 - 1-dose 75+ series) 2055 Hepatitis A Vaccines Aged Out 12/14/2012 No long er eligible based on patient's age to complete this topic HIV Screening Completed 03/29/2023, 030 03/2022, 09/18/2019 Hepatitis C Screening Completed 03/29/2023 , 11/10/2021, 09/18/2019 HIB Vaccines Aged Out No longer eligi ble based on patient's age to complete this topic IPV Vaccines Aged Out No longer eligi ble based on patient's age to complete this topic Meningococcal B Vaccine Aged Out No l onger eligible based on patient's age to complete this topic Meningococcal Vaccine Aged Out No neptali seven eligible based on patient's age to complete this topic RSV under 20 months Aged Out No longe r eligible based on patient's age to complete this topic Rotavirus Vaccines Aged Out No longer eligible based on patient's age to complete this topic Procedures Procedure Name Priority Date/Time Associated Diagnosis Comments ALBUMIN, RANDOM URINE W/CREATININE Routine 07/20/2025 1:49 PM EST Essential hypertension BMI 34.0-34.9,adult CBC Routine 07/20/2025 1:49 PM EST Essential hypertension BMI 34.0-34.9,adult BASIC METABOLIC PANEL Routine 07/20/2025 1:49 PM EST Essential hypertension BMI 34.0-34.9,adult HEMOGLOBIN A1C Routine 07/20/2025 1:49 PM EST Essential hypertension BMI 34.0-34.9,adult HEPATIC FUNCTION PANEL Routine 07/20/2025 1:49 PM EST Essential hypertension BMI 34.0-34.9,adult TSH Routine 07/20/2025 1:49 PM EST Essential hypertension BMI 34.0-34.9,adult LIPID PANEL, STANDARD Routine 07/20/2025 1:49 PM EST Essential hypertension BMI 34.0-34.9,adult VITAMIN D,25-OH,TOTAL,IA Routine 07/20/2025 1:49 PM EST Essential hypertension BMI 34.0-34.9,adult T4, FREE Routine 07/20/2025 1:49 PM EST Essential hypertension BMI 34.0-34.9,adult HEPATITIS C ANTIBODY REFLEX Routine 03/29/2023 10:32 AM EDT HIV ANTIBODY/ANTIGEN ([place] [facility]) Routine 03/29/2023 10:32 AM EDT from Last 3 Months or Most Recently Relevant to Health Maintenance Results * (ABNORMAL) Vitamin D, 25-Hydroxy, Total, Immunoassay (07/20/2025 1:49 PM EST) [facility] Vitamin D 25-OH Total 22.6(L) >30 ng/mL [facility] Comment: Health Based Reference Values*< 20 ng/mL Bmmgddbco26-97 ng/mL Insufficient> 30 ng/mL Sufficient*Lew BARKER. N Engl J Med. 2007;357:266-280There is no well-established upper level of normal vitamin Dlevels. Some laboratories use 50 ng/mL as an upper limit ofnormal. However, toxicity is patient-dependent and may occurat any level. Careful correlation with the patient'spresentation is necessary and, if there is concern forvitamin D toxicity, treatment should be consideredirrespective of the serum level.Care must be taken in interpreting Vitamin D results fromdifferent laboratories and methodologies. Published datademonstrated that results from patients undergoinghemodialysis may show a negative bias when tested withvarious automated 25-OH vitamin D assays when compared toLC-MS/MS.When testing samples from patients whose predominant form ofVitamin D is Vitamin D2, such as patients receiving VitaminD2 supplementation, results that are subtherapeutic shouldbe confirmed with another method such as LC-MS/MS. Blood Venous blood specimen / Unknown 07/20/2025 1:49 PM EST 07/20/2025 4:04 PM EST Mildred Juarez DO LAB BLOOD ORDERABLES Final R esult Performing Organization Address [facility] Co de Phone Number [facility] [address] [place] [phone] * Albumin, Random Urine W/Creatinine (07/20/2025 1:49 PM EST) Creatinine, Urine 174.27 mg/dL [facility] Microalbumin Urine 26.0 mg/L [facility] Microalbum Creatinine Ratio Ur 14.9 <30 ug/mg cr [facility] Comment:Albumin/Creatinine R atio Reference Ranges: Normal: < 30 ug/mg creatinine Microalbuminuria: 30 - 300 ug/mg creatinineClinical Albuminuria: > 300 ug/mg creatinine Urine (Urine, Random) 07/20/2025 1:49 PM EST 07/20/2025 4:01 PM EST Mildredchase Juarez DO LAB URINE ORDERABLES Final R esult Performing Organization Address [facility]/ZIP Co de Phone Number [facility] [address] [place] [phone] * CBC (07/20/2025 1:49 PM EST) White Blood Count 6.7 4.8 - 10.8 X10*3/uL [facility] Red Blood Count 4.49 4.20 - 5.50 X10*6/uL [facility] Hemoglobin 13.4 12.0 - 16.0 g/dl [facility] Hematocrit 41.5 37.0 - 47.0 % [facility] Mean Corpuscular Volume 92.4 80.0 - 98.0 fL [facility] Mean Corpuscular Hemoglobin 29.8 27.0 - 33.0 pg [facility] Mean Corpuscular HGB Conc 32.3 31.0 - 35.0 g/dl [facility] Red Cell Distribution Width 14.8 11.0 - 16.0 % [facility] Platelet Count 372 160 - 400 X10*3/uL [facility] Mean Platelet Volume 10.1 9.4 - 12.3 fL [facility] NRBC Pct Auto 0.0 0.0 - 0.2 /100WBC [facility] NRBC Abs Auto 0.000 0.0 - 0.012 X10*3/uL [facility] Blood Venous blood specimen / Unknown 07/20/2025 1:49 PM EST 07/20/2025 4:06 PM EST us Mildred Juarez DO LAB BLOOD ORDERABLES Final R esult [facility] [address] [place] [phone] * TSH (07/20/2025 1:49 PM EST) Thyroid Stimulating Hormone 0.84 0.32 - 4.0 uIU/mL [facility] Comment:TSH 3rd Generation ( [facility]) Blood Venous blood specimen / Unknown 07/20/2025 1:49 PM EST 07/20/2025 4:04 PM EST Mildred Ann Allihub LAB BLOOD ORDERABLES Final R esult Performing Organization Address [facility]/ZIP Co de Phone Number [facility] [address] [place] [phone] * T4, Free (07/20/2025 1:49 PM EST) Free T4 (Free Thyroxine) 0.93 0.71 - 1.85 ng/dL [facility] Blood Venous blood specimen / Unknown 07/20/2025 1:49 PM EST 07/20/2025 4:04 PM EST Result [facility] Mildred Ann Allihub LAB BLOOD ORDERABLES Final R esult Performing Organization Address [facility] Co de Phone Number [facility] [address] [place] [phone] * Hemoglobin A1c (07/20/2025 1:49 PM EST) Hemoglobin A1c 5.3 <6.0 % [facility] Comment:Hemoglobin A1C Refer ence Range Adults: 4.8 - 6.0 % Non diabetic: < 6.0 % Goal: < 7.0 %Additional Action Suggested: > 8.0 %Note: Hemoglobin A1c results are invalid for patients with abnormal amounts of HbF. Blood transfusions may impact the HbA1c concentration in the patient sample. Estimated Average Glucose 105 mg/dL [facility] Comment:eAG = Estimated ave rage glucose which is %A1C expressed asaverage glucose, using the formula of the [id number]-[id number] Glucose study (ADAG), Diabetes Care, Vol.31,#8,2007 Blood Venous blood specimen / Unknown 07/20/2025 1:49 PM EST 07/20/2025 4:06 PM EST Result [facility] Mildred Ann Allihub LAB BLOOD ORDERABLES Final R esult Performing Organization Address [facility] Co de Phone Number [facility] [address] [place] [phone] [phone] * (ABNORMAL) Hepatic Function Panel (07/20/2025 1:49 PM EST) Bilirubin, Total 0.3 0.0 - 1.0 mg/dL [facility] Bilirubin, Direct 0.2 0.0 - 0.5 mg/dL [facility] Aspartate Amino Transferase 30 5 - 31 U/L [facility] Alanine Aminotransferase 17 0 - 31 U/L [facility] Total Protein 7.8 6.5 - 8.0 g/dL [facility] Albumin Level 4.4 3.5 - 5.0 g/dL [facility] Alkaline Phosphatase 120(H) 39 - 117 U/L [facility] Blood Venous blood specimen / Unknown 07/20/2025 1:49 PM EST 07/20/2025 4:04 PM EST us Mildred Juarez DO LAB BLOOD ORDERABLES Final R esult Performing Organization Address [facility] de Phone Number [facility] [address] [place] [phone] * Lipid Panel, Standard (07/20/2025 1:49 PM EST) Triglycerides 113 <150 mg/dL [facility] Comment:Desirable Triglyceri de: less than 150 mg/dLBorderline High Triglyceride 150-199 mg/dLHigh Triglyceride: 200-499 mg/dLVery High Triglyceride: greater than or equal to 5OO mg/dL Cholesterol 157 <200 mg/dL [facility] Comment:Desirable Cholestero l: less than 200 mg/dLBorderline High Cholesterol: 200-239 mg/dLHigh Cholesterol: greater than 239 mg/dL LDL Cholesterol Calculated 76 <100 mg/dL [facility] Comment:Desirable LDL: less than 100 mg/dLNear Optimal/Above Optimal LDL: 110- 129 mg/dLBorderline High LDL: 130-159 mg/dLHigh LDL: 160-189 mg/dLVery High LDL: greater than or equal to 190 mg/dL HDL Cholesterol 59 >40 mg/dL [facility] Comment:Desirable HDL: great er than 40 mg/dL Note: This HDL assay may give artificially low results in patients with liver disease. Blood Venous blood specimen / Unknown 07/20/2025 1:49 PM EST 07/20/2025 4:04 PM EST Mildred Juarez LAB BLOOD ORDERABLES Final R esult Performing Organization Address [facility] Co de Phone Number [facility] [address] [place] [phone] * (ABNORMAL) Basic Metabolic Panel (07/20/2025 1:49 PM EST) Sodium 139 135 - 145 mmol/L [facility] Potassium 4.2 3.3 - 5.1 mmol/L [facility] Chloride 105 96 - 108 mmol/L [facility] Carbon Dioxide 27 22 - 29 mmol/L [facility] Anion Gap 11(L) 12 - 20 [facility] Urea Nitrogen (BUN) 13 9 - 16 mg/dL [facility] Creatinine, Serum 0.86 0.5 - 1.4 mg/dL [facility] Estimated Glomerular Filt Rate >60 [facility] Comment:Chronic Kidney Disea se: Estimated GFR < 60 mL/min/1.82c0Lspbdu Kidney Disease: Estimated GFR < 15 mL/min/1.73m2 Glucose 83 60 - 115 mg/dL [facility] Calcium 9.1 8.4 - 10.2 mg/dL [facility] Blood Venous blood specimen / Unknown 07/20/2025 1:49 PM EST 07/20/2025 4:04 PM EST Mildred Juarez DO LAB BLOOD ORDERABLES Final R esult Performing Organization Address [facility] Co de Phone Number [facility] [address] [place] [phone] * Hepatitis C Antibody Reflex (03/29/2023 10:32 AM EDT) Hepatitis C Antibody Nonreactive Nonreactive [facility] Comment:Antibodies to HCV no t detected; does not exclude early acuteHCV infection. 03/29/2023 10:3 2 AM EDT 03/29/2023 11:12 AM EDT us Yanelis Pennington MD LAB BLOOD ORDERABLES Final Result Performing Organization Address [facility]/ZIP Co de Phone Number [facility] [address] [place] [phone] * HIV Ab/Ag ([facility]) (03/29/2023 10:32 AM EDT) HIV AB/AG Nonreactive Nonreactive [facility] Comment:HIV-1 p24 Ag and/or HIV-1/HIV-2 Ab not detected.A test result that is nonreactive does not exclude thepossibility of exposure to or infection with HIV-1 and/orHIV-2. Nonreactive results in this assay for individualswith prior exposure to HIV-1 and/or HIV-2 may be due toantigen and antibody levels that are below the limit ofdetection of this assay.[employer] HIV Ag/Ab Combo assay result andsupplemental assay results should be interpreted inconjunction with the patient's clinical presentation,history and other laboratory results. If the results areinconsistent with clinical evidence, additional testing issuggested to confirm the result. 03/29/2023 10:3 2 AM EDT 03/29/2023 11:12 AM EDT us Yanelis Pennington MD LAB BLOOD ORDERABLES Final Result Performing Organization Address [facility]/ZIP Co de Phone Number [facility] [address] [place] [phone] from Last 3 Months or Most Recently Relevant to Health Maintenance Insurance [employer] Care Teams Kiln Repairer Relationship Specialty Start Date End Date Yanelis Marie MD [address] [place] [phone] PCP - General Family Medicine 05/18/18
--- OUTSIDE RECORDS SUMMARY | 2025-07-20 20:07 | XMS_ITS | Encounter Summary ---
Author Organization [employer] Address [address] [facility] [address] [place] [address] Care Team Providers Care Pattern Wheel Maker Name Role Phone Yanelis Marie MD Primary Care Provide r Reason for Visit * Reason Onset Date Comments chart prep 07/19/2025 Encounter Details Date Type Department Care Team ([facility] Contact Info) Description 07/19/2025 Telephone [facility] [address] [place] [address] Yanelis Marie MD [address] [place] [address] chart prep Social History Tobacco Use Types Packs/Day Years [...] encounter Miscellaneous Notes * Telephone Encounter - Bharti Garcia [place] - 07/19/2025 10:29 AM EST Chart Prep Labs: not done pt was informed and will come in earlier to complete Images: done Referrals: not applicable Vaccines due: Covid, Flu, PCV20, Hep B, HPV, and DTAP Screenings: colonoscopy, mammogram, and pap smear Overdue care gaps: SBIRT, SDOH, PHQ-9, and JOSE-7 documented in this encounter Plan of Treatment Upcoming Encounters Date Type Department Care Team (Late st Contact Info) Description 08/28/2025 2:30 PM EST Telemedicine [facility] [address] [place] [address] Yanelis Marie MD [address] [place] [address] documented as of this encounter Visit Diagnoses Not on filedocumented in this encounter Additional Health Concerns Assessment Noted Time PHQ-9 Depression Total Score: 0 03/30/20 24 1:29 PM EDT documented as of this encounter Care Teams Pattern Wheel Maker Relationship Specialty Start Date End Date Yanelis Marie MD [address] [place] [address] PCP - General Family Medicine 05/18/18 documented as of this encounter
--- OUTSIDE RECORDS SUMMARY | 2025-07-20 20:07 | XMS_ITS ---
Care Plan Created on: July 20, 2025 Sarah Howard : 1980 Sex: Female Author Organization [address] Address [address] [place] [address] Phone Care Team Providers Care Rn Rehabilitation Name Role Phone Jere Bello MD Primary Care Provid er Additional Health Concerns Active Problems Noted Date Diagnosed Date Impaired Tissue 12/21/2024 Education needed on impact of smoking on wound 0 12/21/2024 Education needed related to ulceration/compromised skin integrity. 12/21/2024 Goals Goal Patient Goal Type Associated Problems Recent Progress Patient-Stated? Author Decrease Wound Volume by X% by date (in notes) Care Plan Impaired Tissue No Ary Baxter RN Patient and Caregiver Understand Wound Care Education Care Plan Impaired Tissue No Ary Baxter RN Wound volume breakdown reduced by X% by week 4 Care Plan Impaired Tissue No Ary Baxter RN Wound volume breakdown reduced by X% by week 8 Care Plan Impaired Tissue No Ary Baxter RN Wound volume breakdown reduced by X% by week 12 Care Plan Impaired Tissue No Ary Baxter RN Quit using tobacco (cigarettes, smokeless, etc) Care Plan Education needed on impact of smoking on wound No Ary Baxter RN Reduce tobacco use (cigarettes, smokeless, etc) Care Plan Education needed on impact of smoking on wound No Ary Baxter RN Decrease Wound Volume by X% by date (in notes) Care Plan Education needed on impact of smoking on wound No Ary Baxter RN Patient and Caregiver Understand Wound Care Education Care Plan Education needed related to ulceration/compr omised skin integrity. No Ary Baxter RN Interventions Care Plan Interventions Intervention Entry Date Outcome Provide caregiver with wound care procedure information 12/21/2024 Educate caregiver on proper wound care procedures 12/21/2024 Give provider list of wound care supplies 12/21/2024 Refill wound care supplies 12/21/2024 Send Wound Care Supplies 12/21/2024 Give provider list of wound care supplies 12/21/2024 Refill wound care supplies 12/21/2024 Send Wound Care Supplies 12/21/2024 Provide caregiver with wound care procedure information 12/21/2024 Educate caregiver on proper wound care procedures 12/21/2024 Document patient eligibility for HBO 12/21/2024 Assess patient for HBO treatment 12/21/2024 Record wound depth 12/21/2024 Record total wound area 12/21/2024 Measure wound progress 12/21/2024 Create an action plan identifying patient strengths and supports 12/21/2024 Establish quit date with patient 12/21/2024 Discuss prior cessation attempts 12/21/2024 Discuss preferred method of cessation and plan 12/21/2024 Discuss barriers to smoking cessation 12/21/2024 Discuss smoking status with patient 12/21/2024 Create an action plan identifying patient strengths and supports 12/21/2024 Establish quit date with patient 12/21/2024 Discuss prior cessation attempts 12/21/2024 Discuss preferred method of cessation and plan 12/21/2024 Discuss barriers to smoking cessation 12/21/2024 Discuss smoking status with patient 12/21/2024 Provide caregiver with wound care procedure information 12/21/2024 Educate caregiver on proper wound care procedures 12/21/2024 Document patient eligibility for HBO 12/21/2024 Assess patient for HBO treatment 12/21/2024 Record wound depth 12/21/2024 Record total wound area 12/21/2024 Measure wound progress 12/21/2024 Provide caregiver with wound care procedure information 12/21/2024 Educate caregiver on proper wound care procedures 12/21/2024 Document patient eligibility for HBO 12/21/2024 Assess patient for HBO treatment 12/21/2024 Record wound depth 12/21/2024 Record total wound area 12/21/2024 Measure wound progress 12/21/2024 Provide caregiver with wound care procedure information 12/21/2024 Educate caregiver on proper wound care procedures 12/21/2024 Document patient eligibility for HBO 12/21/2024 Assess patient for HBO treatment 12/21/2024 Record wound depth 12/21/2024 Record total wound area 12/21/2024 Measure wound progress 12/21/2024 Provide caregiver with wound care procedure information 12/21/2024 Educate caregiver on proper wound care procedures 12/21/2024 Give provider list of wound care supplies 12/21/2024 Refill wound care supplies 12/21/2024 Send Wound Care Supplies 12/21/2024 Give provider list of wound care supplies 12/21/2024 Refill wound care supplies 12/21/2024 Send Wound Care Supplies 12/21/2024 Provide caregiver with wound care procedure information 12/21/2024 Educate caregiver on proper wound care procedures 12/21/2024 Record wound depth 12/21/2024 Record total wound area 12/21/2024 Measure wound progress 12/21/2024 Related Goals and Interventions Goal Associated Intervent ions Decrease Wound Volume by X% by date (in notes) Give provider list of wound care supplie s; Refill wound care supplies; Send Wound Care Supplies; Provide caregiver with wound care procedure information; Educate caregiver on proper wound care procedures; Record wound depth; Record total wound area; Measure wound progress Patient and Caregiver Unders tand Wound Care Education Provide caregiver with wound care proced ure information; Educate caregiver on proper wound care procedures; Give provider list of wound care supplies; Refill wound care supplies; Send Wound Care Supplies Wound volume breakdown reduc ed by X% by week 4 Provide caregiver with wound care proced ure information; Educate caregiver on proper wound care procedures; Document patient eligibility for HBO; Assess patient for HBO treatment; Record wound depth; Record total wound area; Measure wound progress Wound volume breakdown reduc ed by X% by week 8 Provide caregiver with wound care proced ure information; Educate caregiver on proper wound care procedures; Document patient eligibility for HBO; Assess patient for HBO treatment; Record wound depth; Record total wound area; Measure wound progress Wound volume breakdown reduc ed by X% by week 12 Provide caregiver with wound care proced ure information; Educate caregiver on proper wound care procedures; Document patient eligibility for HBO; Assess patient for HBO treatment; Record wound depth; Record total wound area; Measure wound progress Quit using tobacco (cigarett es, smokeless, etc) Create an action plan identifying patien t strengths and supports; Establish quit date with patient; Discuss prior cessation attempts; Discuss preferred method of cessation and plan; Discuss barriers to smoking cessation; Discuss smoking status with patient Reduce tobacco use (cigarett es, smokeless, etc) Create an action plan identifying patien t strengths and supports; Establish quit date with patient; Discuss prior cessation attempts; Discuss preferred method of cessation and plan; Discuss barriers to smoking cessation; Discuss smoking status with patient Decrease Wound Volume by X% by date (in notes) Give provider list of wound care supplie s; Refill wound care supplies; Send Wound Care Supplies; Provide caregiver with wound care procedure information; Educate caregiver on proper wound care procedures; Document patient eligibility for HBO; Assess patient for HBO treatment; Record wound depth; Record total wound area; Measure wound progress Patient and Caregiver Unders tand Wound Care Education Provide caregiver with wound care proced ure information; Educate caregiver on proper wound care procedures; Give provider list of wound care supplies; Refill wound care supplies; Send Wound Care Supplies
--- OUTSIDE RECORDS SUMMARY | 2025-07-20 20:08 | XMS_ITS | Clinical Summary ---
Author Organization [address] Address [address] [place] [phone] Phone Care Team Providers Care Roller Presser Operator Name Role Phone Jere Bello MD Primary Care Provid er Allergies No known active allergies Medications losartan (COZAAR) 50 mg tablet Take 1 tablet (50 mg total) by mouth 1 (one) time each day. Active acetaminophen (TYLENOL) 325 mg tablet Take 1,000 mg by mouth if needed for mild pain. Active Surgical History Surgery Date Site/Laterality Comments CHOLECYSTECTOMY 09/06/2018 - 09/05/2019 Medical History Medical History Date Comments Tobacco user DX:Tobacco user Hypertension Cervical cancer (CMS/[facility] V24, CMS/[facility] V28) 2022 with chemotherapy and radiation Family History Medical History Relation Name Comments Other: Kidney Disease Mother receiv ed kideny Relation Name Status Comments Brother 1 Alive Brother 2 Alive Father Alive Mother Alive Social History Tobacco Use Types Packs/Day Years Used Date Smoking Tobacco: Former Cigarettes 0 Q uit: 11/20/2024 Smokeless Tobacco: Never Tobacco Cessation:Counseling Given: Not Answered Alcohol Use Standard Drinks/Week Comments Yes 0 (1 standard drink = 0.6 oz pur e alcohol) less than weekly, 3x per month Comments Unknown Sex and Gender Information Value Date Recorded Sex Assigned at Not on file Legal Sex Female 8:51 PM EST Gender Identity Not on file Sexual Orientation Not on file Obstetrics History Last Filed Vital Signs Vital Sign Reading Time Taken Comments Blood Pressure 144/90 12/21/2024 9:20 AM EDT Pulse 96 12/21/2024 9:20 AM EDT Temperature 36.4 C (97.5 F) 12/21/2024 9:20 AM EDT Respiratory Rate 18 12/21/2024 9:20 AM EDT Oxygen Saturation 99% 12/21/2024 9:20 AM EDT Inhaled Oxygen Concentration - - Weight 95.3 kg (210 lb) 12/21/2024 9:20 AM EDT Height 175.3 cm (5' 9 ) 12/21/2024 9:20 AM EDT Body Mass Index 31.01 12/21/2024 9:20 AM EDT Plan of Treatment Health Maintenance Due Date Last Done Comments Breast Cancer Screening 1980 Colorectal Cancer Screening: Colonoscopy 1980 Hepatitis B Vaccines (1 of 3 - 19+ 3-dose series) 1999 Cervical Cancer Screening: Pap Smear 2001 HPV Vaccines (1 - 3-dose SCDM series) 2007 HIV Screening 11/12/2023 Hepatitis C Screening 11/12/2023 Social Influencers of Health Screening 11/12/2023 DTaP,Tdap,and Td Vaccines (3 - Td or Tdap) 11/21/2023 11/20/2013, 08/26/2011 Hypertension/CHF/CAD Annual BMP Blood Test 12/08/2024 COVID-19 Vaccine ( season) 2025 11/04/2021, 12/17/2020, 11/24/2020 Influenza Vaccine (#1) 2025 9, 06/02/2018, 10/04/2017, Additional history exists Cholesterol Screening (Lipid Panel) 03/29/2028 03/29/2023 RSV Immunization Adult Patients (1 - 1-dose 75+ series) 2055 MMR Vaccines Aged Out 08/24/2011 No longer eligi ble based on patient's age to complete this topic Varicella Vaccines Aged Out 08/24/2011 No longer eligible based on patient's age to complete this topic Hepatitis A Vaccines Aged Out 12/14/2012 No long er eligible based on patient's age to complete this topic Depression Screening Completed 12/21/2024 HIB Vaccines Aged Out No longer eligi ble based on patient's age to complete this topic IPV Vaccines Aged Out No longer eligi ble based on patient's age to complete this topic Meningococcal ACWY Vaccine Aged Out N o longer eligible based on patient's age to complete this topic Meningococcal B Vaccine Aged Out No l onger eligible based on patient's age to complete this topic Pneumococcal Vaccine: Pediatrics (0 to 5 Years) and At-Risk Patients (6 to 49 Years) Aged Out No longer eligible based on patient's age to complete this topic RSV Immunization Patients Under 20 months Aged Out No longer eligible based on patient's age to complete this topic Goals Goal Patient Goal Type Associated Problems [...] omised skin integrity. No Ary Baxter RN Additional Health Concerns Active Problems Noted Date Diagnosed Date Impaired Tissue 12/21/2024 Education needed on impact of smoking on wound 0 12/21/2024 Education needed related to ulceration/compromised skin integrity. 12/21/2024 Insurance MEDICAID - [place] Care Teams Roller Presser Operator Relationship Specialty Start Date End Date Jere Bello MD [address] [place] [address] PCP - General Internal Medicine 10/04/12
--- OUTSIDE RECORDS SUMMARY | 2025-07-20 20:08 | XMS_ITS | Encounter Summary ---
Author Organization [facility] Address [address] [place] [address] Care Team Providers Care Surgical Resident Name Role Phone Jere Bello MD Primary Care Provid er Encounter Details Date Type Department Care Team (Late st Contact Info) Description 12/08/2024 Lab Requisition [facility] - Main Lab [address] [facility] [place] [address] Hector Mora MD [address] [facility] [address] [place] [address] Gross hematuria Social History Tobacco Use Types Packs/Day Years Used Date Smoking Tobacco: Every Day Cigarettes Smokeless Tobacco: Never Alcohol Use Standard Drinks/Week Comments Yes 0 (1 standard drink = 0.6 oz pur e alcohol) Comments Unknown Sex and Gender Information Value Date Recorded Sex Assigned at Not on file Legal Sex Female 8:51 PM EST Gender Identity Not on file Sexual Orientation Not on file documented as of this encounter Plan of Treatment Not on file documented as of this encounter Procedures Procedure Name Priority Date/Time Associated Diagnosis Comments AP OUTSIDE CONSULT Routine 12/05/2024 12 :00 AM EDT Gross hematuria documented in this encounter Results * Anatomic pathology outside consult (12/05/2024 12:00 AM EDT) Final Diagnosis A. Urine, Voided, ([id number]): Negative for high grade urothelial carcinoma. Results of UroVysion fluorescence in situ hybridization (FISH) testing: CEP3: Normal CEP7: Normal CEP17: Normal LSI 9p21: Normal Interpretation: Normal profile Controls stained appropriately. Note: The results are intended as a screening device and should be interpreted in association with other clinical and pathological findings. 12/11/2024 4:48 PM EDT [facility] Clinical Information Gross hematuria R31.0 Urine Cytology/FISH (now) 12/11/2024 4:48 PM EDT [facility] Gross Description A. Urine, Voided, ([id number]): Received one ThinPrep slide for cytology and one ThinPrep slide for UroVysion FISH 12/11/2024 4:48 PM EDT [facility] Disclaimer Unless otherwise specified, all tissue is 10% NB formalin fixed and paraffin embedded. Technical pathology services provided by [facility] at [address] [place] [address] [address], [place] [address] (CLIA #[id number]/Viviana Faith MD, Fibreglass Laminator) 12/11/2024 4:48 PM EDT [facility] Tissue Urine specimen from urethra / Unknown 12/05/2024 12/08/2024 2:45 PM EDT us Hector Mora MD LAB PATHOLOGY ORDERAB LES Final Result [facility] [address] [place] [address], documented in this encounter Visit Diagnoses Diagnosis Gross hematuria documented in this encounter Care Teams Surgical Resident Relationship Specialty Start Date End Date Jere Bello MD [address] [place] [address] PCP - General Internal Medicine 10/04/12 documented as of this encounter
--- OUTSIDE RECORDS SUMMARY | 2025-07-20 20:08 | XMS_ITS | Encounter Summary ---
Author Organization [employer] Address [address] [facility] [address] [place] [address] Care Team Providers Care Assistant Dean Of Students Name Role Phone Yanelis Marie MD Primary Care Provide r Encounter Details Date Type Department Care Team (Late st Contact Info) Description 07/23/2023 Telephone [facility] [address] [place], [place] [phone] Yanelis Marie MD [address] [place], [place] [phone] Social History Tobacco Use Types Packs/Day Years Used Date Smoking Tobacco: Every Day Cigarettes Passive Smoke Exposure: Current Smokeless Tobacco: Never Depression Answer Date Recorded Patient Health Questionnaire-9 Score 0 03/29/2023 Housing Stability Answer Date Recorded What is your housing situation today? I have jaden perez 07/12/[address] you li ve. Do you have problems with any of the following? None of the above 07/12/2023 Food Insecurity Answer Date Recorded Within the past 12 months, y ou worried that your food would run out before you got money to buy more: Never True 07/12/2023 Within the past 12 months,th e food you bought just didn't last and you didn't have enough money to get more: Never True 02/2023 Transportation Answer Date Recorded In the past 12 months, has l ack of transportation kept you from medical appts, meetings, work or from getting things needed for daily living? No 07/12/2023 Utilities Answer Date Recorded In the past 12 months, has t he electric, gas, oil or water company threatened to shut off services in your home? No 07/12/2023 Depression Answer Date Recorded Patient Health Questionnaire-2 Score 0 03/29/2023 Comments Unknown Sex and Gender Information Value Date Recorded Sex Assigned at Female 07/06/2022 10:21 AM EDT Legal Sex Female 10:21 AM EDT Gender Identity Female 07/06/2022 10:21 AM EDT Sexual Orientation Straight 07/06/2022 10 :21 AM EDT documented as of this encounter Plan of Treatment Upcoming Encounters Date Type Department Care Team (Late st Contact Info) Description 08/28/2025 2:30 PM EST Telemedicine [facility] [address] [place] [address] Yanelis Marie MD [address] [place] [address] documented as of this encounter Visit Diagnoses Not on filedocumented in this encounter Additional Health Concerns Assessment Noted Time PHQ-9 Depression Total Score: 0 03/29/20 23 9:44 AM EDT documented as of this encounter Care Teams Assistant Dean Of Students Relationship Specialty Start Date End Date Yanelis Marie MD [address] [place], [place] [phone] PCP - General Family Medicine 05/18/18 documented as of this encounter
--- OUTSIDE RECORDS SUMMARY | 2025-07-20 20:08 | XMS_ITS | Encounter Summary ---
Author Organization [employer] Address [address] [place] [address] Care Team Providers Care Wheel And Caster Repairer Name Role Phone Jere Bello MD Primary Care Provid er Encounter Details Date Type Department Care Team (Late st Contact Info) Description 12/05/2024 Lab Requisition [facility] - Main Lab [address] [place] [address] Hector Mora MD [address] [facility] [address] [place] [address] Urinary tract infection, site not specified; Gross hematuria Social History Tobacco Use Types [...] Procedure Name Priority Date/Time Associated Diagnosis Comments CULTURE URINE Routine 12/05/2024 12:00 AM EDT Urinary tract infection, site not specified Gross hematuria documented in this encounter Results * Culture urine (12/05/2024 12:00 AM EDT) Culture, Urine No growth 12/06/2024 3:01 PM EDT [facility] Urine Urine specimen obtained by clean catch procedure / Unknown 12/05/2024 12/05/2024 7:05 PM EDT us Hector Mora MD LAB MICROBIOLOGY - GE NERAL ORDERABLES Final Result [facility] [address] [place] [address], documented in this encounter Visit Diagnoses Diagnosis Urinary tract infection, site not specified Gross hematuria documented in this encounter Care Teams Wheel And Caster Repairer Relationship Specialty Start Date End Date Jere Bello MD [address] [place] [phone] PCP - General Internal Medicine 10/04/12 documented as of this encounter
== END 2025-07-20 13:47 | disposition home or self-care (01) ==
LOC: HO.HHCL 13:46
PROVIDERS: Family Medicine; PCP Internal Medicine; Visit Provider Internal Medicine
DX: Z13.1 Encounter for screening for diabetes mellitus (principal); I10 Essential (primary) hypertension; Z68.34 Body mass index [BMI] 34.0-34.9, adult
CPT/HCPCS: 36415; 80048; 80061; 80076; 82043; 82306; 82570; 83036; 84439; 84443; 85027

== ENCOUNTER 2025-08-22 17:34 | Outpatient (REF) | payer SELFPAY ==
--- OUTSIDE RECORDS SUMMARY | 2025-08-22 11:00 | XMS_ITS | Encounter Summary ---
Author Organization [employer] Address 75 [facility] 7 [place] [address] Care Team Providers Care Chemical Laboratory Technician Name Role Phone Yanelis Marie MD Primary Care Provide r Reason for Referral * Consultation (Routine) - Pending Review Specialty Diagnoses / Procedures Referred By Imani sorto Referred To Contact General Surgery Diagnoses Subcutaneous mass Ivon Raya FNP [address] [place] [address] Phone: tel: fax: Referral ID Status Reason Start Date Expiration Date Visits Requested Visits Authorized [id number] Pending Review Specialty Services Required 08/22/2026 1 1 Encounter Details Date Type Department Care Team ([facility] Contact Info) Description 08/22/2025 11:00 AM EST Office Visit [facility] [address] [place] [address] Ivon Raya FNP [address] [place] [address] Vaginal symptom (Primary Dx); Subcutaneous mass; Essential hypertension Social History Tobacco Use Types [...] Sign Reading Time Taken Comments Blood Pressure 142/90 08/22/2025 11:27 AM EST Pulse 84 08/22/2025 11:27 AM EST Temperature 36.7 C (98 F) 08/22/2025 11:27 AM EST Respiratory Rate 18 08/22/2025 11:27 AM EST Oxygen Saturation - - Inhaled Oxygen Concentration - - Weight - - Height - - Body Mass Index - - documented in this encounter Progress Notes * ESAU Eric - 08/22/2025 11:00 AM EST Subjective: Sarah Howard is a 45 y.o. 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 HPI She reports 3-4 days of vaginal symptoms including mild burning of vaginal canal with (+) pruritus.Denies significant vaginal discharge. (+) change in odor. No urinary symptoms. 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 Subcutaneous lesion left elbow: s/p fall approx 4-6 months ago, and has now developed a mass below the site of injury. Denies any redness, pain, pus, or discharge. Mobile mass approx 2-3cm in diameter. Interested in consideration of removal. Referral to surgery consult placed. Problem List[1] Review of Systems Constitutional: Negative for chills and fever. Respiratory: Negative for cough and wheezing. Cardiovascular: Negative for chest pain and palpitations. Gastrointestinal: Negative for vomiting. Genitourinary: Negative for dysuria, hematuria and urgency. Burning around vaginal canal Visit Vitals BP (!) 142/90 (BP Location: Left arm, Patient Position: Sitting, BP Cuff Size: Large adult long) Pulse 84 Temp 98 ??F (36.7 ??C) (Temporal) Resp 18 Smoking Status Every Day Physical Exam Constitutional: Appearance: Normal appearance. HENT: Head: Atraumatic. Right Ear: External ear normal. Left Ear: External ear normal. Cardiovascular: Rate and Rhythm: Normal rate. Pulmonary: Effort: Pulmonary effort is normal. Skin: Comments: Left forearm distal to elbow: 2-3cm mobile subcutaneous mass. Non- tender, no erythema, noincreased warmth. Neurological: Mental Status: She is alert and oriented to person, place, and time. Psychiatric: Mood and Affect: Mood normal. Behavior: Behavior normal. Problem List Items Addressed This Visit Visit Diagnoses Vaginal symptom - Primary - Testing for BV/trich/yeast/CT/NG completed today - Follow up precautions Relevant Orders Bacterial Vaginosis Panel Chlamydia/N. Gonorrhoeae RNA, TMA, Vaginal Subcutaneous mass - Post-traumatic subcutanous cyst development left forearm distal to elbow - No red flag symptoms, she is interested in further surgical consult Relevant Orders Referral to General Surgery Cardiac and Vasculature Essential hypertension Current Assessment & Plan - She continues with losartan 50mg daily - BP mildly elevated in clinic, discussed importance of good BP control, especially with use of phentermine - Home BP kit prescribed Follow up: routine care with PCP, sooner as needed [1] Patient Active Problem List Diagnosis Depressive [...] of breast BMI 34.0-34.9,adult Hematuria Tobacco user documented in this encounter Miscellaneous Notes * Assessment & Plan Note - ESAU Eric - 08/22/2025 4:06 PM ESTAssociated Problem(s): Essential hypertension - She continues with losartan 50mg daily - BP mildly elevated in clinic, discussed importance of good BP control, especially with use of phentermine - Home BP kit prescribed documented in this encounter Plan of Treatment Upcoming Encounters Date Type Department Care Team (Late st Contact Info) Description 08/28/2025 2:[address] [facility] [address] [place] [phone] Yanelis Marie MD [address] [place] [phone] 10/31/2025 10:30 AM EST Office Visit [facility] [address] [place] [phone] Yanelis Marie MD [address] [place] [phone] Scheduled Orders Name Type Priority Associated Diagnoses Orde r Schedule Bacterial Vaginosis Panel Microbiology Routine Vaginal symptom Ordered: 08/22/2025 Chlamydia/N. Gonorrhoeae RNA, TMA, Vaginal Microbiology Routine Vaginal symptom Ordered: 08/22/2025 Scheduled Referrals Name Type Priority Associated Diagnoses Orde r Schedule Referral to General Surgery Outpatient Referral Routine Subcutaneous mass Expected: 08/22/2025 (Approximate), Expires: 08/22/2026 documented as of this encounter Visit Diagnoses Diagnosis Vaginal symptom- Primary Subcutaneous mass Essential hypertension Unspecified essential hypertension documented in this encounter Additional Health Concerns Assessment Noted Time PHQ-9 Depression Total Score: 7 07/20/20 25 2:52 PM EST documented as of this encounter Care Teams Chemical Laboratory Technician Relationship Specialty Start Date End Date Yanelis Marie MD [address] [place] [address] PCP - General Family Medicine 05/18/18 documented as of this encounter
--- OUTSIDE RECORDS SUMMARY | 2025-08-22 21:05 | XMS_ITS | Encounter Summary ---
Author Organization [employer] Address 75 [facility] 7t [place] [address] Care Team Providers Care Automotive Porter Name Role Phone Yanelis Marie MD Primary Care Provide r Reason for Visit * Reason Onset Date Comments Nurse Triage 08/22/2025 Encounter Details Date Type Department Care Team ([facility] st Contact Info) Description 08/22/2025 Telephone [facility] [address] [place] [address] Yanelis Marie MD [address] [place] [address] Nurse Triage Social History Tobacco Use Types Packs/Day Years [...] encounter Miscellaneous Notes * Telephone Encounter - Edwige Sharp RN - 08/22/2025 9:52 AM EST TC to pt to triage for vaginal symptoms. Pt states that for the last 3-4 days she has been experiencing abnormal discharge and itching. Pt concerned she may have a yeast infection. Denies fevers or pain with urination, dysuria. No recent infection treated. Pt scheduled with Ivon Raya on 08/22/25 at 11 am. Pt agrees to plan. Protocol Used: Vaginal Symptoms (Adult) Protocol-Based Disposition: See in Office or Video Visit within 3 Days Positive Triage Questions: * Vaginal itching and not improved > 3 days following Care Advice * Symptoms of a yeast infection (i.e., itchy, white discharge, not bad smelling) and feels like prior vaginal yeast infections * All higher-acuity triage questions were negative. Care Advice Discussed: * Reasons To Call Back - Vaginal discharge becomes yellow or green - Vaginal discharge becomes foul smelling or itchy - Fever or abdomen pain occur - You become worse * Telephone Encounter - Giorgi Cruz - 08/22/2025 9:33 AM EST Tc from pt returning call regarding message prior. * Telephone Encounter - Edwige Sharp RN - 08/22/2025 9:25 AM EST TC x1 to pt to triage for vaginal symptoms. No answer, LVM to return call to office and ask for triage nurses. * Telephone Encounter - Donnie Nixon - 08/22/2025 8:42 AM EST Symptom: Vaginal Symptoms - Not Bleeding Outcome: Schedule an urgent appointment (within 4 hours) or talk to a nurse or provider soon Reason: Foul-smelling vaginal discharge The caller accepted this outcome. Contact pt at [phone] documented in this encounter Plan of Treatment Upcoming Encounters Date Type Department Care Team (Late st Contact Info) Description 08/28/2025 2:30 PM EST Telemedicine [facility] [address] [place] [address] Yanelis Marie MD [address] [place] [address] 10/31/2025 10:30 AM EST Office Visit [facility] [address] [place] [phone] Yanelis Marie MD [address] [place] [address] documented as of this encounter Visit Diagnoses Not on filedocumented in this encounter Additional Health Concerns Assessment Noted Time PHQ-9 Depression Total Score: 7 07/20/20 25 2:52 PM EST documented as of this encounter Care Teams Automotive Porter Relationship Specialty Start Date End Date Yanelis Marie MD [address] [place] [phone] PCP - General Family Medicine 05/18/18 documented as of this encounter
--- OUTSIDE RECORDS SUMMARY | 2025-08-22 21:05 | XMS_ITS | Encounter Summary ---
Author Organization [employer] Address 75 [facility] 7t [place] [address] Care Team Providers Care Assembler Deck And Hull Name Role Phone Yanelis Marie MD Primary Care Provide r Encounter Details Date Type Department Care Team (Latest Contact Info) Description 08/22/2025 Travel Social History Tobacco Use Types Packs/Day [...] Info) Description 08/28/2025 2:30 PM EST Telemedicine [facility] [address] [place] [phone] Yanelis Marie MD [address] [place] [address] 10/31/2025 10:30 AM EST Office Visit [address] [address] Yanelis Marie MD [address] [place] [address] documented as of this encounter Visit Diagnoses Not on filedocumented in this encounter Additional Health Concerns Assessment Noted Time PHQ-9 Depression Total Score: 7 07/20/20 25 2:52 PM EST documented as of this encounter Care Teams Assembler Deck And Hull Relationship Specialty Start Date End Date Yanelis Marie MD [address] [place] [address] PCP - General Family Medicine 05/18/18 documented as of this encounter
--- OUTSIDE RECORDS SUMMARY | 2025-08-22 21:05 | XMS_ITS | Clinical Summary ---
Author Organization [address] Address [address] [place] [phone] Phone Care Team Providers Care Media Relations Manager Name Role Phone Jere Bello MD Primary [...] user DX:Tobacco user Hypertension Cervical cancer (CMS/[facility] V24, CMS/[facility]ER[facility] V28) 2022 with chemotherapy and radiation Family [...] on file Sexual Orientation Not on file Last Filed Vital Signs Vital Sign Reading [...] 12/21/2024 Insurance MEDICAID - [place] Care Teams Media Relations Manager Relationship Specialty Start Date End Date Jere Bello MD [address] [place] [phone] PCP - General Internal Medicine 10/04/12
--- OUTSIDE RECORDS SUMMARY | 2025-08-22 21:05 | XMS_ITS ---
Care Plan Created on: August 22, 2025 Sarah Howard : 1980 Sex: Female Author Organization [address] Address [address] [place] [address] Phone Care Team Providers Care Hash Slinger Name Role Phone Jere Bello MD Primary [...]
--- OUTSIDE RECORDS SUMMARY | 2025-08-22 21:05 | XMS_ITS | Encounter Summary ---
Author Organization [employer] Address 75 [facility] 7t [place] [address] Care Team Providers Care Journeyman Mechanic Name Role Phone Yanelis Marie MD Primary Care Provide r Reason for Visit * Reason Comments Med Refill Encounter Details Date Type Department Care Team ([facility] Contact Info) Description 08/18/2025 Refill [facility] [address] [place], [place] [phone] Yanelis Marie MD [address] [place] [address] Class 1 obesity due to excess calories with serious comorbidity and body mass index (BMI) of 32.0 to 32.9 in adult Social History Tobacco Use Types Packs/Day Years [...] Info) Description 08/28/2025 2:30 PM EST Telemedicine [facility] [address] [place] [phone] Yanelis Marie MD [address] [place] [address] 10/31/2025 10:30 AM EST Office Visit [facility] [address] [place] [address] Yanelis Marie MD [address] [place] [address] documented as of this encounter Visit Diagnoses Diagnosis Class 1 obesity due to excess calories with serious comorbidity and body mass index (BMI) of 32.0 to 32.9 in adult documented in this encounter Additional Health Concerns Assessment Noted Time PHQ-9 Depression Total Score: 7 07/20/20 25 2:52 PM EST documented as of this encounter Care Teams Journeyman Mechanic Relationship Specialty Start Date End Date Yanelis Marie MD [address] [place] [address] PCP - General Family Medicine 05/18/18 documented as of this encounter
--- OUTSIDE RECORDS SUMMARY | 2025-08-22 21:05 | XMS_ITS | Encounter Summary ---
Author Organization [employer] Address [address] [place] [address] Care Team Providers Care Satellite Project Site Monitor Name Role Phone Jere Bello MD Primary Care Provid er Encounter Details Date Type Department Care Team (Late st Contact Info) Description 12/05/2024 Lab Requisition [facility] - Main Lab [address] [place] [address] Hector Mora MD 100 [facility] [address] [place] [address] Urinary tract infection, site not specified; Gross [...] Urine No growth 12/06/2024 3:01 PM EDT [facility] Urine Urine specimen obtained by clean catch procedure / Unknown 12/05/2024 12/05/2024 7:05 PM EDT us Hector Mora MD LAB MICROBIOLOGY - GE NERAL ORDERABLES Final Result [facility] [address] [place] [address], documented in this encounter Visit Diagnoses Diagnosis Urinary tract infection, site not specified Gross hematuria documented in this encounter Care Teams Satellite Project Site Monitor Relationship Specialty Start Date End Date Jere Bello MD [address] [place] [phone] PCP - General Internal Medicine 10/04/12 documented as of this encounter
--- OUTSIDE RECORDS SUMMARY | 2025-08-22 21:05 | XMS_ITS | Encounter Summary ---
Author Organization [employer] Address 75 [facility] 7t [place] [address] Care Team Providers Care Leather Leveler Name Role Phone Yanelis Marie MD Primary Care Provide r Reason for Visit * Reason Onset Date Comments Diego 08/07/2025 [facility] Outreach Encounter Details Date Type Department Care Team ([facility] st Contact Info) Description 08/07/2025 Telephone [facility] [address] [place] [address] Viky Shahid RN Cologuard ([facility] Outreach) Social History Tobacco Use Types Packs/Day Years [...] encounter Miscellaneous Notes * Telephone Encounter - Viky Shahid RN - 08/20/2025 2:43 PM EST RN outreach completed for Cologuard?? follow-up. Spoke with patient regarding the importance of completing colorectal cancer screening and reviewed how to properly collect and return the Cologuard?? kit. Discussed common barriers and provided education on options for UPS drop-off or scheduling a home pick-up. Patient verbalized understanding and plans to complete the test. Encouraged patient to call the clinic if additional questions or barriers arise. If patient needs materials resent, confirmed preferred method (mail/text/email). Confirmed correct mailing address for test kit. Documented any reported barriers in the tracking spreadsheet. * Telephone Encounter - Viky Shahid RN - 08/07/2025 10:41 AM EST RN outreach completed for Cologuard?? follow-up. Left voicemail for patient reminding them to complete their Cologuard?? test and explaining the importance of colorectal cancer screening. Informed patient that calls are returned on Tuesdays and provided clinic callback number ([phone]). Requested that if they return the call on a different day, patient access representatives send a message to the RN's inbox. Will attempt follow-up call again next week if no response. Optional add-on for repeat attempts: This was call attempt #1 Will close outreach if no response after third attempt. documented in this encounter Plan of Treatment Upcoming Encounters Date Type Department Care Team (Late st Contact Info) Description 08/28/2025 2:30 PM EST Telemedicine [facility] [address] [place] [phone] Yanelis Marie MD [address] [place] [address] 10/31/2025 10:30 AM EST Office Visit [facility] [address] [place] [address] [phone] Yanelis Marie MD [address] [place] [phone] documented as of this encounter Visit Diagnoses Not on filedocumented in this encounter Additional Health Concerns Assessment Noted Time PHQ-9 Depression Total Score: 7 07/20/20 25 2:52 PM EST documented as of this encounter Care Teams Leather Leveler Relationship Specialty Start Date End Date Yanelis Marie MD [address] [place] [phone] PCP - General Family Medicine 05/18/18 documented as of this encounter
--- OUTSIDE RECORDS SUMMARY | 2025-08-22 21:05 | XMS_ITS | Encounter Summary ---
Author Organization [employer] Address 75 [facility] 7t [place] [address] Care Team Providers Care Solar Site Assessment Specialist Name Role Phone Yanelis Marie MD Primary Care Provide r Reason for Visit * Reason Onset Date Comments Med Refill 06/12/2025 Encounter Details Date Type Department Care Team ([facility] st Contact Info) Description 06/12/2025 Refill [facility]INE [address] [place] [address] Yanelis Marie MD [address] [place] [address] Social History Tobacco Use Types Packs/Day Years [...] solution auto-injector To be sent to: - [id number] [place] [facility] [address] [facility] documented in this encounter Plan of Treatment Upcoming Encounters Date Type Department Care Team (Late st Contact Info) Description 08/28/2025 2:30 PM EST Telemedicine [facility]INE [address] [place] [address] Yanelis Marie MD [address] [place] [address] 10/31/2025 10:30 AM EST Office Visit [facility] [address] [place] [address] Yanelis Marie MD [address] [place] [address] documented as of this encounter Visit Diagnoses Not on filedocumented in this encounter Additional Health Concerns Assessment Noted Time PHQ-9 Depression Total Score: 0 03/30/20 24 1:29 PM EDT documented as of this encounter Care Teams Solar Site Assessment Specialist Relationship Specialty Start Date End Date Yanelis Marie MD [address] [place] [address] PCP - General Family Medicine 05/18/18 documented as of this encounter
--- OUTSIDE RECORDS SUMMARY | 2025-08-22 21:05 | XMS_ITS | Encounter Summary ---
Author Organization [facility] Address [address] [place] [address] Care Team Providers Care Florist'S Decorator Name Role Phone Jere Bello MD Primary Care Provid er Encounter Details Date Type Department Care Team (Late st Contact Info) Description 12/08/2024 Lab Requisition [facility] - Main Lab [address] [facility] [place] [address] Hector Mora MD 100 [facility] [address] [place] [address] Gross hematuria Social History Tobacco Use Types [...] AM EDT) Final Diagnosis A. Urine, Voided, ([id number]): Negative for high grade urothelial carcinoma. Results of UroVysion fluorescence in situ hybridization (FISH) testing: CEP3: Normal CEP7: Normal CEP17: Normal LSI 9p21: Normal Interpretation: Normal profile Controls stained appropriately. Note: The results are intended as a screening device and should be interpreted in association with other clinical and pathological findings. 12/11/2024 4:48 PM EDT [facility] at 1648 EDT Clinical Information Gross hematuria R31.0 Urine Cytology/FISH (now) 12/11/2024 4:48 PM EDT [facility] Gross Description A. Urine, Voided, ([id number]): Received one ThinPrep slide for cytology and one ThinPrep slide for UroVysion FISH 12/11/2024 4:48 PM EDT [facility] Disclaimer Unless otherwise specified, all tissue is 10% NB formalin fixed and paraffin embedded. Technical pathology services provided by [facility] at [address] [facility] [address], [place] [address] (CLIA #[id number]/Viviana Faith MD, Quiller Tender) 12/11/2024 4:48 PM EDT [facility] Tissue Urine specimen from urethra / Unknown 12/05/2024 12/08/2024 2:45 PM EDT us Hector Mora MD LAB PATHOLOGY ORDERAB LES Final Result [facility] [address] [place] [address], documented in this encounter Visit Diagnoses Diagnosis Gross hematuria documented in this encounter Care Teams Florist'S Decorator Relationship Specialty Start Date End Date Jere Bello MD [address] [place] [address] PCP - General Internal Medicine 10/04/12 documented as of this encounter
--- OUTSIDE RECORDS SUMMARY | 2025-08-22 21:05 | XMS_ITS | Encounter Summary ---
Author Organization [employer] Address 75 [facility] 7t [place] [address] Care Team Providers Care Temple Meat Cutter Name Role Phone Yanelis Marie MD Primary Care Provide r Encounter Details Date Type Department Care Team (Late st Contact Info) Description 07/23/2023 Telephone [facility]INE [address] [place], [place] [phone] Yanelis Marie MD [address] [place], [place] [phone] Social History Tobacco Use Types Packs/Day Years [...] Info) Description 08/28/2025 2:30 PM EST Telemedicine [facility] MED[facility]INE [address] [place] [address] Yanelis Marie MD [address] [place] [address] 10/31/2025 10:30 AM EST Office Visit [facility] [address] [place] [address] Yanelis Marie MD [address] [place] [phone] documented as of this encounter Visit Diagnoses Not on filedocumented in this encounter Additional Health Concerns Assessment Noted Time PHQ-9 Depression Total Score: 0 03/29/20 23 9:44 AM EDT documented as of this encounter Care Teams Temple Meat Cutter Relationship Specialty Start Date End Date Yanelis Marie MD [address] [place] [phone] PCP - General Family Medicine 05/18/18 documented as of this encounter
--- OUTSIDE RECORDS SUMMARY | 2025-08-22 21:05 | XMS_ITS | Clinical Summary ---
Author Organization [employer] Address [address] [facility] 7[address] [place] [address] Care Team Providers Care Weatherization Director Name Role Phone Yanelis Marie MD Primary Care Provide r Allergies No known active allergies Medications nicotine polacrilex (Nicorette) 4 MG gum Chew 1 each (4 mg) if needed for smoking cessation. 100 each 2 01/02/20 23 Active nicotine (Nicoderm, Step 1) 21 MG/24HR patchIndication s:Nicotine Dependence Place 1 patch on the skin 1 (one) time each day at the same time. 30 patch 11 03/29/20 23 Active buPROPion SR (Wellbutrin SR) 150 MG 12 hr tabletIndicatio ns:Tobacco dependence Take 1 tablet by oral route every morning for 3 days. If tolerating well may increase to twice daily 60 tablet 1 03/30/20 24 Active Tirzepatide-Davie ght Management (Zepbound) 2.5 MG/0.5ML solution auto-injector Inject 0.5 mL (2.5 mg) under the skin 1 (one) time per week. 2 mL 3 12/06/19 25 Active Diclofenac Sodium 1 % gelIndications: Acute pain of left shoulder Apply to left shoulder bid prn pain 50 g 1 04/19/20 25 Active Tirzepatide-Davie ght Management (Zepbound) 5 MG/0.5ML solution auto-injectorIn dications:Class 1 obesity due to excess calories with serious comorbidity and body mass index (BMI) of 32.0 to 32.9 in adult Inject 0.5 mL (5 mg) under the skin 1 (one) time per week. 2 mL 06/12/20 25 Active nicotine (Nicoderm CQ) 21 MG/24HR patchIndication s:Tobacco dependence Place 1 patch on the skin 1 (one) time each day at the same time. 30 patch 07/20/20 25 Active phentermine 15 MG capsuleIndicati ons:Class 1 obesity due to excess calories with serious comorbidity and body mass index (BMI) of 32.0 to 32.9 in adult Take 1 capsule (15 mg) by mouth before breakfast. 30 capsule 1 07/20/20 25 2025 Active losartan (Cozaar) 50 MG tabletIndicatio ns:Essential hypertension TAKE 1 TABLET(50 MG) BY MOUTH DAILY 30 tablet 3 07/23/20 25 Active cholecalciferol (Vitamin D-3) 50 MCG (1999 UT) capsule Take 1 capsule (50 mcg) by mouth Once per day. 90 capsule 3 08/15/20 25 Active topiramate (Topamax) 25 MG tabletIndicatio ns:Class 1 obesity due to excess calories with serious comorbidity and body mass index (BMI) of 32.0 to 32.9 in adult TAKE 1 TABLET(25 MG) BY MOUTH EVERY 12 HOURS 60 tablet 08/20/20 25 Active Blood Pressure kit Use to check blood pressure daily and when symptomatic 1 kit 08/22/20 25 Active Blood Pressure kit 1 each 1 (one) time per week. 1 kit 12/06/19 25 2024 Discontinued(R eorder (will not trigger notification to Pharmacy)) topiramate (Topamax) 25 MG tabletIndicatio ns:Class 1 obesity due to excess calories with serious comorbidity and body mass index (BMI) of 32.0 to 32.9 in adult Take 1 tablet (25 mg) by mouth every 12 (twelve) hours. 60 tablet 07/20/20 25 2024 Discontinued Active Problems Problem Noted Date Diagnosed Date [...] 01/01/23. Continue lisinopril 20mg. Assessment & Plan (08/22/2025 4:06 PM EST): - She continues with losartan 50mg daily - BP mildly elevated in clinic, discussed importance of good BP control, especially with use of phentermine - Home BP kit prescribed Assessment & Plan (04/19/2025 10:59 AM EDT): [...] Date Diagnosed Date Resolved Date Cervical cancer ([facility]) 01/01/2023 Assessment & Plan (03/29/2023 10:13 AM EDT): Continue to follow with SENIOR COMPENSATION ANALYST and SENIOR COMPENSATION ANALYST oncologist, she will do PAPs and mammograms with them Encounters Date Type Department Care Team Description 08/22/2025 11:00 AM EST Office Visit [facility] [address] [place], [place] [phone] Ivon Raya FNP Vaginal symptom (Primary Dx); Subcutaneous mass; Essential hypertension 08/22/2025 Travel 08/22/2025 Telephone [facility] [address] [place] [address] Yanelis Marie MD Nurse Triage 08/18/2025 Refill [facility] [address] [place], [place] [phone] Yanelis Marie MD Class 1 obesity due to excess calories with serious comorbidity and body mass index (BMI) of 32.0 to 32.9 in adult 08/14/2025 Refill [facility] [address] [place], [place] [phone] Yanelis Marie MD 08/07/2025 Telephone [facility] [address] [place], [place] [phone] Viky Shahid RN Cologuard ([facility] Outreach) 08/06/2025 Telephone [facility] [address] [place], [place] [phone] Yanelis Marie MD 07/27/2025 Telephone [facility] [address] [place] [phone] Yanelis Marie MD feb recalls 07/20/2025 2:00 PM EST Office Visit [address] [address] Yanelis Marie MD Screening for colon cancer (Primary Dx); Tobacco dependence; Encounter for screening mammogram for malignant neoplasm of breast; Class 1 obesity due to excess calories with serious comorbidity and body mass index (BMI) of 32.0 to 32.9 in adult; Encounter for preventive care; Dietary counseling; Exercise counseling 07/20/[address] [address] Mildred Juarez, Essential hypertension 07/20/2025 Travel 07/19/[address] [phone] Yanelis Marie MD chart prep 07/13/2025 Patient Outreach [facility] [address] [place], [place] [phone] Yanelis Marie MD Pre-visit Planning (SDOH unable to reach M ) 06/15/[address] [address] Yanelis Marie MD Prior Authorization (PA: Sonia) 06/12/2025 Orders Only [address] [phone] Yanelis Marie MD Class 1 obesity due to excess calories with serious comorbidity and body mass index (BMI) of 32.0 to 32.9 in adult (Primary Dx) 06/12/2025 Refill [facility] [address] [place] [address] [phone] Yanelis Marie MD from Last 3 Months Immunizations Immunization Administration [...] 18 08/22/2025 11:27 AM EST Oxygen Saturation 99% 04/19/2025 10:42 AM EDT Inhaled Oxygen Concentration - - Weight 104 kg (229 lb 6.4 oz) 07/20/2025 2:12 PM EST Height 177.8 cm (5' 10 ) 07/20/2025 2:12 PM EST Body Mass Index 32.92 07/20/2025 2:12 PM EST Plan of Treatment Upcoming Encounters Date Type Department Care Team (Late st Contact Info) Description 08/28/2025 2:30 PM EST Telemedicine [facility] [address] [place] [address] [phone] Yanelis Marie MD [address] [place] [address] [phone] 10/31/2025 10:30 AM EST Office Visit [facility] [address] [place] [phone] Yanelis Marie MD [address] [place] [address] [phone] Health Maintenance Due Date Last Done Comments [...] - Td or Tdap) 11/21/2023 11/20/2013, 08/26/2011 Influenza Vaccine (#1) 2026 9, 06/02/2018, 10/04/2017, Additional history exists Postponed from 05/07/2025 (Patient Refused) Disability Screening 04/19/2026 04/19/2025 Alcohol/Substance Use Screening 07/20/2026 07/20/2025 Depression Screening 07/20/2026 07/20/2025, 07/20/20 SDOH Screening 07/20/2026 07/20/2025 COVID-19 Vaccine ( season) 2026 11/04/2021, 12/17/2020, 11/24/2020 Postponed from 05/07/2025 (Patient Refused) Tobacco Screening 08/22/2026 08/22/2025 Zoster Vaccines (1 of 2) 2030 Lipid Panel 07/20/2030 07/20/2025, 03/07, 11/10/2021 RSV Patients and Patients Aged 60 years or older (1 - 1-dose 75+ series) 2055 Hepatitis A Vaccines Aged Out 12/14/2012 No long er eligible based on patient's age to complete this topic HIV Screening Completed 03/29/2023, 0303/2022, 09/18/2019 Hepatitis C Screening Completed 03/29/2023 , [...] 25-Hydroxy, Total, Immunoassay (07/20/2025 1:49 PM EST) [facility] Vitamin D 25-OH Total 22.6(L) >30 ng/mL [facility] Comment: Health Based Reference Values*< 20 ng/mL [id number] ng/mL Insufficient> 30 ng/mL Sufficient*Lew BARKER. N [...] ORDERABLES Final R esult Performing Organization Address [facility] Co de Phone Number [facility] [address] [place] [phone] * Albumin, Random Urine W/Creatinine (07/20/2025 1:49 PM EST) Creatinine, Urine 174.27 mg/dL [facility] Microalbumin Urine 26.0 mg/L [facility] Microalbum Creatinine Ratio Ur 14.9 <30 ug/mg cr [facility] Comment:Albumin/Creatinine R atio Reference Ranges: Normal: < 30 ug/mg creatinine Microalbuminuria: 30 - 300 ug/mg creatinineClinical Albuminuria: > 300 ug/mg creatinine Urine (Urine, Random) 07/20/2025 1:49 PM EST 07/20/2025 4:01 PM EST Mildred Juarez DO LAB URINE ORDERABLES Final R esult Performing Organization Address [facility]/ZIP Co de Phone Number [facility] [address] [place] [phone] * CBC (07/20/2025 1:49 PM EST) White Blood Count 6.7 4.8 - 10.8 X10*3/uL [facility] Red Blood Count 4.49 4.20 - 5.50 X10*6/uL [facility] Hemoglobin 13.4 12.0 - 16.0 g/dl [facility] Hematocrit 41.5 37.0 - 47.0 % [facility] Mean Corpuscular Volume 92.4 80.0 - 98.0 fL [facility] Mean Corpuscular Hemoglobin 29.8 27.0 - 33.0 pg [facility] Mean Corpuscular HGB Conc 32.3 31.0 - 35.0 g/dl [facility] Red Cell Distribution Width 14.8 11.0 - 16.0 % [facility] Platelet Count 372 160 - 400 X10*3/uL [facility] Mean Platelet Volume 10.1 9.4 - 12.3 fL [facility] NRBC Pct Auto 0.0 0.0 - 0.2 /100WBC [facility] NRBC Abs Auto 0.000 0.0 - 0.012 X10*3/uL [facility] Blood Venous blood specimen / Unknown 07/20/2025 1:49 PM EST 07/20/2025 4:06 PM EST us Mildred Juarez DO LAB BLOOD ORDERABLES Final R esult [facility] [address] [place] [phone] * TSH (07/20/2025 1:49 PM EST) Thyroid Stimulating Hormone 0.84 0.32 - 4.0 uIU/mL [facility] Comment:TSH 3rd Generation ( [facility]) Blood Venous blood specimen / Unknown 07/20/2025 1:49 PM EST 07/20/2025 4:04 PM EST Mildred Juarez [address] LAB BLOOD ORDERABLES Final R esult Performing Organization Address City/[facility]/ZIP Co de Phone Number [facility] [address] [place] [phone] * T4, Free (07/20/2025 1:49 PM EST) Free T4 (Free Thyroxine) 0.93 0.71 - 1.85 ng/dL [facility] Blood Venous blood specimen / Unknown 07/20/2025 1:49 PM EST 07/20/2025 4:04 PM EST Mildred Juarez LAB BLOOD ORDERABLES Final R esult Performing Organization Address [facility] de Phone Number [facility] [address] [place] [phone] * Hemoglobin A1c (07/20/2025 1:49 PM EST) Hemoglobin A1c 5.3 <6.0 % [facility] Comment:Hemoglobin A1C Refer ence Range Adults: 4.8 - 6.0 % Non diabetic: < 6.0 % Goal: < 7.0 %Additional Action Suggested: > 8.0 %Note: Hemoglobin A1c results are invalid for patients with abnormal amounts of HbF. Blood transfusions may impact the HbA1c concentration in the patient sample. Estimated Average Glucose 105 mg/dL [facility] Comment:eAG = Estimated ave rage glucose which is %A1C expressed asaverage glucose, using the formula of the [id number] Glucose study (ADAG), Diabetes Care, Vol.31,#8,Apr. 2007 Blood Venous blood specimen / Unknown 07/20/2025 1:49 PM EST 07/20/2025 4:06 PM EST Result [facility] Mildred Juarez LAB BLOOD ORDERABLES Final R esult Performing Organization Address [facility] Co de Phone Number [facility] [address] [place] [phone] * (ABNORMAL) Hepatic Function Panel (07/20/2025 1:49 PM EST) Bilirubin, Total 0.3 0.0 - 1.0 mg/dL [facility] Bilirubin, Direct 0.2 0.0 - 0.5 mg/dL [facility] Aspartate Amino Transferase 30 5 - 31 U/L [facility] Alanine Aminotransferase 17 0 - 31 U/L [facility] Total Protein 7.8 6.5 - 8.0 g/dL [facility] Albumin Level 4.4 3.5 - 5.0 g/dL [facility] Alkaline Phosphatase 120(H) 39 - 117 U/L [facility] Blood Venous blood specimen / Unknown 07/20/2025 1:49 PM EST 07/20/2025 4:04 PM EST us Mildred Juarez DO LAB BLOOD ORDERABLES Final R esult [facility] [address] [place] [phone] * Lipid Panel, Standard (07/20/2025 1:49 PM EST) Pathologist [facility] Triglycerides 113 <150 mg/dL [facility] Comment:Desirable Triglyceri de: less than 150 mg/dLBorderline High Triglyceride 150-199 mg/dLHigh Triglyceride: 200-499 mg/dLVery High Triglyceride: greater than or equal to 5OO mg/dL Cholesterol 157 <200 mg/dL [facility] Comment:Desirable Cholestero l: less than 200 mg/dLBorderline High Cholesterol: 200-239 mg/dLHigh Cholesterol: greater than 239 mg/dL LDL Cholesterol Calculated 76 <100 mg/dL [facility] Comment:Desirable LDL: less than 100 mg/dLNear Optimal/Above Optimal LDL: 110- 129 mg/dLBorderline High LDL: 130-159 mg/dLHigh LDL: 160-189 mg/dLVery High LDL: greater than or equal to 190 mg/dL HDL Cholesterol 59 >40 mg/dL [facility] Comment:Desirable HDL: great er than 40 mg/dL Note: This HDL assay may give artificially low results in patients with liver disease. Blood Venous blood specimen / Unknown 07/20/2025 1:49 PM EST 07/20/2025 4:04 PM EST Mildred Juarez LAB BLOOD ORDERABLES Final R esult Performing Organization Address [facility] Co de Phone Number [facility] [address] [place] [phone] * (ABNORMAL) Basic Metabolic Panel (07/20/2025 1:49 PM EST) Sodium 139 135 - 145 mmol/L [facility] Potassium 4.2 3.3 - 5.1 mmol/L [facility] Chloride 105 96 - 108 mmol/L [facility] Carbon Dioxide 27 22 - 29 mmol/L [facility] Anion Gap 11(L) 12 - 20 [facility] Urea Nitrogen (BUN) 13 9 - 16 mg/dL [facility] Creatinine, Serum 0.86 0.5 - 1.4 mg/dL [facility] Estimated Glomerular Filt Rate >60 [facility] Comment:Chronic Kidney Disea se: Estimated GFR < 60 mL/min/1.23b1Sdoiky Kidney Disease: Estimated GFR < 15 mL/min/1.73m2 Glucose 83 60 - 115 mg/dL [facility] Calcium 9.1 8.4 - 10.2 mg/dL [facility] Blood Venous blood specimen / Unknown 07/20/2025 1:49 PM EST 07/20/2025 4:04 PM EST Mildred Juarez DO LAB BLOOD ORDERABLES Final R esult Performing Organization Address [facility] Co de Phone Number [facility] [address] [place] [phone] * Hepatitis C Antibody Reflex (03/29/2023 10:32 AM EDT) Hepatitis C Antibody Nonreactive Nonreactive [facility] Comment:Antibodies to HCV no t detected; does not exclude early acuteHCV infection. 03/29/2023 10:3 2 AM EDT 03/29/2023 11:12 AM EDT us Yanelis Pennington MD LAB BLOOD ORDERABLES Final Result Performing Organization Address [facility] Co de Phone Number [facility] [address] [place] [phone] * HIV Ab/Ag ([facility]) (03/29/2023 10:32 AM EDT) HIV AB/AG Nonreactive Nonreactive [facility] Comment:HIV-1 p24 Ag and/or HIV-1/HIV-2 Ab not detected.A test result that is nonreactive does not exclude thepossibility of exposure to or infection with HIV-1 and/orHIV-2. Nonreactive results in this assay for individualswith prior exposure to HIV-1 and/or HIV-2 may be due toantigen and antibody levels that are below the limit ofdetection of this assay.[employer] HIV Ag/Ab Combo assay result andsupplemental assay results should be interpreted inconjunction with the patient's clinical presentation,history and other laboratory results. If the results areinconsistent with clinical evidence, additional testing issuggested to confirm the result. 03/29/2023 10:3 2 AM EDT 03/29/2023 11:12 AM EDT us Yanelis Pennington MD LAB BLOOD ORDERABLES Final Result Performing Organization Address [facility] de Phone Number [facility] [address] [place] [phone] from Last 3 Months or Most Recently Relevant to Health Maintenance Insurance [employer] Care Teams Weatherization Director Relationship Specialty Start Date End Date Yanelis Marie MD [address] [place] [phone] PCP - General Family Medicine 05/18/18
[2025-08-23 02:26] LABS: Bacterial Vaginosis PCR NEGATIVE (Negative); Candida Group PCR DETECTED (Not Detect); Candida glab krusei PCR NOT DETECTED (Not Detect); Trichomonas vaginalis PCR NOT DETECTED (Not Detect)
[2025-08-23 02:57] LABS: CT PCR NOT DETECTED (Not Detect.); NG PCR NOT DETECTED (Not Detect.)
== END 2025-08-22 17:35 ==
LOC: HO.HHCLNP 17:34
PROVIDERS: Visit Provider Registered Nurse
DX: Z20.2 Contact with and (suspected) exposure to infections with a predominantly sexual mode of transmission (principal); N89.8 Other specified noninflammatory disorders of vagina
CPT/HCPCS: 81515; 87491; 87591

== ENCOUNTER 2025-09-04 13:32 | Outpatient (AMB) | payer OTHER, SELFPAY ==
--- NOTE | 2025-09-04 13:34 | MHC.OFFVIS ---
Vital Signs 09/04/25 13:43 Height 5 ft 10 in Weight 230 lb BMI 33.0 BP 152/92 H Blood Pressure Location Rt brachial Position Sitting Pulse 84 Intake Visit Reasons: Mass on left elbow Intake Note: Patient referred by Ivon CIFUENTES for evaluation of mass on Lt elbow. Noticed after a scooter fall in May. Patient c/o: smaller in size today, was bigger two wks ago when evaluated by pcp. Summer Law Clerk Required: No Accompanied by: Self / Same As Patient Allergies No Known Allergies (No Known Allergies*) Allergy (Unverified 09/04/25 13:39) Medication List - Last Reconciled 09/04/25 by Rod Diaz MD ibuprofen 600 mg PO Q6H PRN losartan 100 mg PO DAILY HPI Comments Details: Patient reports that she recently ?fell off a skateboard? in ?landed hard? on her left elbow. She did not sustain any fracture but there was a lot of bruising according to her and she presented to her PCP after the bruising resolved and she was left with a cystic mass. She denies any residual pain reports that she has full function of her left elbow with full active and passive range of motion. She is also neurovascularly intact without deficit. She was just curious about the mass. [facility] Medical History (Updated 09/04/25 @ 14:01 by Rod Diaz MD) HTN (hypertension) Social History (Updated 09/04/25 @ 13:41 by ANDI Manuel) Patient Tobacco Use Status: Never used Tobacco Review of Systems Const All systems reviewed & are unremarkable except as noted in HPI and below Physical Exam Vital Signs: Last Vital Signs Pulse 84 09/04/25 13:43 BP 152/92 H 09/04/25 13:43 BMI result Body Mass Index 33.0 Const General: cooperative, healthy appearing and comfortable Nutritional Appearance: average body habitus Orientation/consciousness: patient oriented x3 Limitations: no limitations HEENT Head: Yes normal to inspection, Yes normocephalic and Yes atraumatic Ears: hearing grossly normal bilaterally General nose exam: Normal external nose present Eyes Pupils: Equal, round and reactive pupils present EOM: EOMs intact bilaterally Neck Neck: Yes normal visual inspection Chest Chest palpation & inspection: normal inspection of the chest Resp Effort & Inspection: normal respiratory effort and able to speak in complete sentences Cardio Rate: regular rate Rhythm: regular rhythm Neuro General: patient oriented x3 Cranial nerves: Yes Equal, round and reactive pupils present Extrem Other: On her left forearm just distal to the olecranon she exhibits a approximate 2-3 cm diameter mobile nontender cystic soft tissue mass. There is associated very minor scabbing on the skin. There is no erythema edema or discharge. There is no change in the mass with active or passive range of motion. It is freely mobile underneath the skin without tenderness. Assessment & Plan Assessment & Plan (1) Seroma due to trauma: Code(s): T79.2XXA - Traumatic secondary and recurrent hemorrhage and seroma, initial encounter Category: Medical Plan: I told the patient that the mass is most likely pharmacy sales representative of a resolving hematoma or seroma. I postulated that more likely than not it would be reabsorbed in its entirety. There is always a possibility residual fluid collection or soft tissue masslike calcified remnants of a hematoma could be left on. She does not want to do anything about it now and I think that is reasonable. She has agreed to follow up with us in approximately 3 months and she has also agreed to contact us should she have any questions or problems. Coding Level of Care Code New Pt Level 3 (45171) Diagnoses Seroma due to trauma T79.2XXA Time Spent (min) 30 Comment Record review patient visit and coordination of care time
[2025-09-04 13:43] VITALS: BP 152/92; PULSE 84; BMI 33.0
--- OUTSIDE RECORDS SUMMARY | 2025-09-04 17:25 | XMS_ITS | Clinical Summary ---
Author Organization [address] Address [address] [place] [phone] Phone Care Team Providers Care Electrical Repairer Name Role Phone Jere Bello MD [...] Tobacco user DX:Tobacco user Hypertension Cervical cancer (CMS/[facility] V24, CMS/[facility] V28) 2022 with chemotherapy and radiation [...] 12/21/2024 Insurance MEDICAID - [place] Care Teams Electrical Repairer Relationship Specialty Start Date End Date Jere Bello MD [address] [place] [phone] PCP - General Internal Medicine 10/04/12
--- OUTSIDE RECORDS SUMMARY | 2025-09-04 17:25 | XMS_ITS ---
Care Plan Created on: September 04, 2025 Sarah Howard : 1980 Sex: Female Author Organization [address] Address [address] [place] [address] Phone Care Team Providers Care Mortgage Loan Closer Name Role Phone Jere Bello MD Primary [...]
--- OUTSIDE RECORDS SUMMARY | 2025-09-04 17:25 | XMS_ITS | Encounter Summary ---
Author Organization [employer] Address [address] [facility] [address] [place] [address] Care Team Providers Care Restaurant Area Manager Name Role Phone Yanelis Marie MD Primary Care Provide r Encounter Details Date Type Department Care Team ([facility] st Contact Info) Description 08/23/2025 Results Follow-Up [facility] [address] [place], [place] [phone] Ivon Raya, ESAU [address] [place] [address] Bacterial Vaginosis Panel, Chlamydia/N. Gonorrhoeae RNA, TMA, Vaginal Social History Tobacco Use Types Packs/Day Years [...] Care Team (Late st Contact Info) Description 10/31/2025 10:30 AM EST Office Visit [facility] [address] [place] [phone] Yanelis Marie MD [address] [place] [phone] documented as of this encounter Visit Diagnoses Not on filedocumented in this encounter Additional Health Concerns Assessment Noted Time PHQ-9 Depression Total Score: 7 07/20/20 25 2:52 PM EST documented as of this encounter Care Teams Restaurant Area Manager Relationship Specialty Start Date End Date Yanelis Marie MD [address] [place] [phone] PCP - General Family Medicine 05/18/18 documented as of this encounter
--- OUTSIDE RECORDS SUMMARY | 2025-09-04 17:25 | XMS_ITS | Encounter Summary ---
Author Organization [employer] Address [address] [place] [address] Care Team Providers Care Respiratory Scientist Name Role Phone Jere Bello MD Primary Care Provid er Encounter Details Date Type Department Care Team (Late st Contact Info) Description 12/05/2024 Lab Requisition [facility] - Main Lab [address] [place] [address] Hector Mora MD [address] [facility] [address] [place] [address] Urinary tract infection, site not specified; Gross [...] Urine No growth 12/06/2024 3:01 PM EDT [facility] ([facility]) [facility] Urine Urine specimen obtained by clean catch procedure / Unknown 12/05/2024 12/05/2024 7:05 PM EDT us Hector Mora MD LAB MICROBIOLOGY - GE NERAL ORDERABLES Final Result [facility] ([facility]) [facility] [address] [place] [address], documented in this encounter Visit Diagnoses Diagnosis Urinary tract infection, site not specified Gross hematuria documented in this encounter Care Teams Respiratory Scientist Relationship Specialty Start Date End Date Jere Bello MD [address] [place] [phone] PCP - General Internal Medicine 10/04/12 documented as of this encounter
--- OUTSIDE RECORDS SUMMARY | 2025-09-04 17:25 | XMS_ITS | Encounter Summary ---
Author Organization [facility] Address [address] [place] [address] Care Team Providers Care Weight Analyst Name Role Phone Jere Bello MD Primary Care Provid er Encounter Details Date Type Department Care Team (Late st Contact Info) Description 12/08/2024 Lab Requisition [facility] - Main Lab [address] [facility] [place] [address] Hector Mora MD 100 [facility] [address] [place] [address] Gross hematuria Social History Tobacco Use Types [...] AM EDT) Final Diagnosis A. Urine, Voided, ([id number]): Negative for high grade urothelial carcinoma. Results of Uro[employer]ion fluorescence in situ hybridization (FISH) testing: CEP3: Normal CEP7: Normal CEP17: Normal LSI 9p21: Normal Interpretation: Normal profile Controls stained appropriately. Note: The results are intended as a screening device and should be interpreted in association with other clinical and pathological findings. 12/11/2024 4:48 PM EDT [facility] at 1648 EDT Clinical Information Gross hematuria R31.0 Urine Cytology/FISH (now) 12/11/2024 4:48 PM EDT [facility] Gross Description A. Urine, Voided, ([id number]): Received one ThinPrep slide for cytology and one ThinPrep slide for UroVysion FISH 12/11/2024 4:48 PM EDT [facility] Disclaimer Unless otherwise specified, all tissue is 10% NB formalin fixed and paraffin embedded. Technical pathology services provided by [facility] at [address] [facility] [address] [address] (CLIA #[id number]/Viviana Faith MD, Cds Sales Advisor) 12/11/2024 4:48 PM EDT [facility] Tissue Urine specimen from urethra / Unknown 12/05/2024 12/08/2024 2:45 PM EDT us Hector Mora MD LAB PATHOLOGY ORDERAB LES Final Result [facility] [address] [place] [address], documented in this encounter Visit Diagnoses Diagnosis Gross hematuria documented in this encounter Care Teams Weight Analyst Relationship Specialty Start Date End Date Jere Bello MD [address] [place] [address] PCP - General Internal Medicine 10/04/12 documented as of this encounter
--- OUTSIDE RECORDS SUMMARY | 2025-09-04 17:25 | XMS_ITS | Clinical Summary ---
Author Organization [employer] Address [address] [facility] 7t [place] [address] Care Team Providers Care Flake [employer] Name Role Phone Yanelis Marie MD Primary [...] same time. 30 patch 07/20/20 25 Active cholecalciferol (Vitamin D-3) 50 MCG (2000 UT) capsule Take 1 capsule (50 mcg) [...] when symptomatic 1 kit 08/22/20 25 Active losartan (Cozaar) 100 MG tabletIndicatio ns:Essential hypertension Take 1 tablet (100 mg) by mouth Once per day. 30 tablet 11 08/28/20 25 2025 Active phentermine 37.5 MG capsuleIndicati ons:Class 1 obesity due to excess calories with serious comorbidity and body mass index (BMI) of 32.0 to 32.9 in adult Take 1 capsule (37.5 mg) by mouth before breakfast. 30 capsule 1 08/28/20 25 2025 Active topiramate (Topamax) 50 MG tabletIndicatio ns:Class 1 obesity due to excess calories with serious comorbidity and body mass index (BMI) of 32.0 to 32.9 in adult Take 1 tablet (50 mg) by mouth Once per day. 60 tablet 1 08/28/20 25 Active Blood Pressure kit 1 each 1 (one) time per week. 1 kit 12/06/19 25 2024 Discontinued(R eorder (will not trigger notification to Pharmacy)) phentermine 15 MG capsuleIndicati ons:Class 1 obesity due to excess calories with serious comorbidity and body mass index (BMI) of 32.0 to 32.9 in adult Take 1 capsule (15 mg) by mouth before breakfast. 30 capsule 1 07/20/20 25 2024 Discontinued topiramate (Topamax) 25 MG tabletIndicatio ns:Class 1 obesity due to excess calories with serious comorbidity and body mass index (BMI) of 32.0 to 32.9 in adult Take 1 tablet (25 mg) by mouth every 12 (twelve) hours. 60 tablet 07/20/20 25 2024 Discontinued losartan (Cozaar) 50 MG tabletIndicatio ns:Essential hypertension TAKE 1 TABLET(50 MG) BY MOUTH DAILY 30 tablet 3 07/23/20 25 2024 Discontinued fluconazole (Diflucan) 150 MG tablet Take 1 tablet (150 mg) by mouth 1 (one) time for 1 dose. If symptoms continue, take second tablet 3 days later. 2 tablet 08/23/20 25 2024 Active Problems Problem Noted Date Diagnosed Date [...] Date Diagnosed Date Resolved Date Cervical cancer ([facility]/HCC) 01/01/2023 Assessment & Plan (03/29/2023 10:13 AM EDT): Continue to follow with SENIOR SECURITY ARCHITECT and SENIOR SECURITY ARCHITECT oncologist, she will do PAPs and mammograms with them Encounters Date Type Department Care Team Description 08/28/2025 2:30 PM EST Telemedicine [facility] [address] [place] [address] [phone] Yanelis Marie MD Class 1 obesity due to excess calories with serious comorbidity and body mass index (BMI) of 32.0 to 32.9 in adult (Primary Dx); Essential hypertension 08/28/2025 Travel 08/27/2025 Telephone [facility] [address] [place] [phone] Yanelis Marie MD chart prep 08/23/2025 Orders Only [facility] [address] [place] [address] Ivon Raya FNP 08/23/2025 Results Follow-Up [facility] [address] [place] [address] Ivon Raya FNP Bacterial Vaginosis Panel, Chlamydia/N. Gonorrhoeae RNA, TMA, Vaginal 08/22/2025 11:00 AM EST Office Visit [facility] [address] [place] [phone] Ivon Raya FNP Vaginal symptom (Primary Dx); Subcutaneous mass; Essential hypertension 08/22/2025 Travel 08/22/2025 Telephone [facility] [address] [place] [phone] Yanelis Marie MD Nurse Triage 08/18/2025 Refill [facility] [address] [place] [phone] Yanelis Marie MD Class 1 obesity due to excess calories with serious comorbidity and body mass index (BMI) of 32.0 to 32.9 in adult 08/14/2025 Refill [facility] [address] [place] [phone] Yanelis Marie MD 08/07/2025 Telephone [facility] [address] [place] [phone] Viky Shahid, [facility] Outreach) 08/06/2025 Telephone [facility] [address] [place] [phone] Yanelis Marie MD 07/27/2025 Telephone [facility] [address] [place] [phone] Yanelis Marie MD feb recalls 07/20/2025 2:00 PM EST Office Visit [facility] [address] [place] [phone] Yanelis Marie MD Screening for colon cancer (Primary Dx); Tobacco dependence; Encounter for screening mammogram for malignant neoplasm of breast; Class 1 obesity due to excess calories with serious comorbidity and body mass index (BMI) of 32.0 to 32.9 in adult; Encounter for preventive care; Dietary counseling; Exercise counseling 07/20/2025 Refill [facility] [address] [place] [address] [phone] Mildred Juarez, Essential hypertension 07/20/2025 Travel 07/19/[address] [phone] Yanelis Marie MD chart prep 07/13/2025 Patient Outreach [facility] [address] [place], [place] [phone] Yanelis Marie MD Pre-visit Planning ([facility] unable to reach [facility] ) 06/15/2025 Telephone [facility] [address] [place] [address] [phone] Yanelis Marie MD Prior Authorization (PA: Sonia) 06/12/2025 Orders Only [facility] [address] [place] [address] [phone] Yanelis Marie MD Class 1 obesity due to excess calories with serious comorbidity and body mass index (BMI) of 32.0 to 32.9 in adult (Primary Dx) 06/12/2025 Refill [facility] [address] [place] [address] [phone] Yanelis Marie MD from Last 3 Months [...] Description 10/31/2025 10:30 AM EST Office Visit [facility] [address] [place] [address] Yanelis Marie MD [address] [place], [place] [phone] Health Maintenance Due Date Last Done Comments [...] 07/20/2025, 07/20/20 25 SDOH Screening 07/20/2026 07/20/2025 COVID-19 Vaccine ( [...] complete this topic HIV Screening Completed 03/29/2023, 03/2022, 09/18/2019 Hepatitis C Screening Completed 03/29/2023 [...] Procedure Name Priority Date/Time Associated Diagnosis Comments CHLAMYDIA/N. GONORRHOEAE RNA, TMA, UROGENITAL Routine 08/22/2025 12:31 PM EST Vaginal symptom BACTERIAL VAGINOSIS PANEL Routine 08/22/2025 12:31 PM EST Vaginal symptom ALBUMIN, RANDOM URINE W/CREATININE Routine 07/20/2025 1:49 [...] Relevant to Health Maintenance Results * (ABNORMAL) Bacterial Vaginosis Panel (08/22/2025 12:31 PM EST) TRICHOMONAS VAGINALIS DETECTION BY PCR NOT DETECTED Not Detect [facility] BACTERIAL VAGINOSIS DETECTION BY PCR NEGATIVE Negative [facility] Comment:The BV organism targ ets of the Xpert Xpress MVP test can becommensal in women; Xpert Xpress MVP positive results forbacterial vaginosis should be considered in conjunction withother clinical and patient information to determine thedisease status. Organisms that are not detected by the XpertXpress MVP test have also been reported to be associatedwith BV and aerobic vaginitis.The Xpert Xpress MVP test performance has not been evaluatedin patients under the age of 14. CODI GROUP DETECTION BY PCR DETECTED(A) Not Detect [facility] Codi glab krusei PCR NOT DETECTED Not Detect [facility] Swab Vaginal structure / Unknown 08/22/2025 12:31 PM EST 08/22/2025 5:34 PM EST Ivon Raya [facility] MICROBIOLOGY - GENERAL ORD ERABLES Final Result [facility] [address] [place] [phone] * Chlamydia/N. Gonorrhoeae RNA, TMA, Vaginal (08/22/2025 12:31 PM EST) CT PCR NOT DETECTED Not Detect. [facility] Comment:A not detected test result does not exclude the possibilityof infection because test results can be affected byimproper specimen collection, concurrent antibiotic therapy,or the number of organisms in the specimen which may bebelow the sensitivity of the test. As with many diagnostictests, results from the Xpert CT/NG assay should beinterpreted in conjunction with other laboratory andclinical data available to the clinician.Xpert CT/NG performance has not been evaluated in patientsless than 14 years of age. The assay should not be used forthe evaluationof suspected sexual abuse or for other medico-legalindications. Additional testing is recommended in anycircumstance when false positive or false negative resultscould lead to adverse medical, social or psychologicalconsequences. NG PCR NOT DETECTED Not Detect. [facility] Comment:A not detected test result does not exclude the possibilityof infection because test results can be affected byimproper specimen collection, concurrent antibiotic therapy,or the number of organisms in the specimen which may bebelow the sensitivity of the test. As with many diagnostictests, results from the Xpert CT/NG assay should beinterpreted in conjunction with other laboratory andclinical data available to the clinician.Xpert CT/NG performance has not been evaluated in patientsless than 14 years of age. The assay should not be used forthe evaluationof suspected sexual abuse or for other medico-legalindications. Additional testing is recommended in anycircumstance when false positive or false negative resultscould lead to adverse medical, social or psychologicalconsequences. Swab (Vaginal Swab) 08/22/2025 12:31 PM EST 08/22/2025 5:34 PM EST Ivon Dorota [facility] MICROBIOLOGY - GENERAL ORD ERABLES Final Result Performing Organization Address City/[facility]/ZIP Co de Phone Number [facility] [address] [place] [address] [phone] * (ABNORMAL) Vitamin D, 25-Hydroxy, Total, Immunoassay (07/20/2025 1:49 PM EST) Vitamin D 25-OH Total 22.6(L) >30 ng/mL [facility] Comment: Health Based Reference Values*< 20 ng/mL [id number] ng/mL Insufficient> 30 ng/mL Sufficient*Lew BARKER. N [...] ORDERABLES Final R esult Performing Organization Address City/State/[facility] de Phone Number [facility] [address] [place] [address] [phone] * Albumin, Random Urine W/Creatinine (07/20/2025 1:49 PM EST) Creatinine, Urine 174.27 mg/dL [facility] Microalbumin Urine 26.0 mg/L [facility] Microalbum Creatinine Ratio Ur 14.9 <30 ug/mg cr [facility] Comment:Albumin/Creatinine R atio Reference Ranges: Normal: < 30 ug/mg creatinine Microalbuminuria: 30 - 300 ug/mg creatinineClinical Albuminuria: > 300 ug/mg creatinine Urine (Urine, Random) 07/20/2025 1:49 PM EST 07/20/2025 4:01 PM EST Mildred Juarez DO LAB URINE ORDERABLES Final R esult Performing Organization Address [facility] de Phone Number [facility] [address] [place] [address] [phone] * CBC (07/20/2025 1:49 PM EST) White Blood Count 6.7 4.8 - 10.8 X10*3/uL [facility] Red Blood Count 4.49 4.20 - 5.50 X10*6/uL [facility] Hemoglobin 13.4 12.0 - 16.0 g/dl [facility] Hematocrit 41.5 37.0 - 47.0 % [facility] Mean Corpuscular Volume 92.4 80.0 - 98.0 fL [facility] Mean Corpuscular Hemoglobin 29.8 27.0 - 33.0 pg [facility] Mean Corpuscular HGB Conc 32.3 31.0 - 35.0 g/dl [facility] Red Cell Distribution Width 14.8 11.0 - 16.0 % [facility] Platelet Count 372 160 - 400 X10*3/uL [facility] Mean Platelet Volume 10.1 9.4 - 12.3 fL [facility] NRBC Pct Auto 0.0 0.0 - 0.2 /100WBC [facility] NRBC Abs Auto 0.000 0.0 - 0.012 X10*3/uL [facility] Blood Venous blood specimen / Unknown 07/20/2025 1:49 PM EST 07/20/2025 4:06 PM EST Mildred Juarez DO LAB BLOOD ORDERABLES Final R esult Performing Organization Address City/[facility]/ZIP Co de Phone Number [facility] [address] [place] [phone] * TSH (07/20/2025 1:49 PM EST) Thyroid Stimulating Hormone 0.84 0.32 - 4.0 uIU/mL [facility] Comment:TSH 3rd Generation ( [employer]) Blood Venous blood specimen / Unknown 07/20/2025 1:49 PM EST 07/20/2025 4:04 PM EST Mildred Juarez LAB BLOOD ORDERABLES Final R esult Performing Organization Address [facility]/ZIP Co de Phone Number [facility] [address] [place] [phone] * T4, Free (07/20/2025 1:49 PM EST) Free T4 (Free Thyroxine) 0.93 0.71 - 1.85 ng/dL [facility] Blood Venous blood specimen / Unknown 07/20/2025 1:49 PM EST 07/20/2025 4:04 PM EST Mildred Juarez DO LAB BLOOD ORDERABLES Final R esult Performing Organization Address City/[facility]/ZIP Co de Phone Number [facility] [address] [place] [phone] * Hemoglobin A1c (07/20/2025 1:49 PM EST) Hemoglobin A1c 5.3 <6.0 % [facility] Comment:Hemoglobin A1C Refer ence Range Adults: 4.8 - 6.0 % Non diabetic: < 6.0 % Goal: < 7.0 %Additional Action Suggested: > 8.0 %Note: Hemoglobin A1c results are invalid for patients with abnormal amounts of HbF. Blood transfusions may impact the HbA1c concentration in the patient sample. Estimated Average Glucose 105 mg/dL [facility] Comment:eAG = Estimated ave rage glucose which is %A1C expressed asaverage glucose, using the formula of the I8W-UjrkkrwBtsmguk Glucose study (ADAG), Diabetes Care, Vol.31,#8,Apr. 2007 Blood Venous blood specimen / Unknown 07/20/2025 1:49 PM EST 07/20/2025 4:06 PM EST Mildred Juarez DO LAB BLOOD ORDERABLES Final R esult [facility] [address] [place] [phone] * (ABNORMAL) Hepatic Function Panel (07/20/2025 1:49 PM EST) Bilirubin, Total 0.3 0.0 - 1.0 mg/dL [facility] Bilirubin, Direct 0.2 0.0 - 0.5 mg/dL [facility] Aspartate Amino Transferase 30 5 - 31 U/L [facility] Alanine Aminotransferase 17 0 - 31 U/L [facility] Total Protein 7.8 6.5 - 8.0 g/dL [facility] Albumin Level 4.4 3.5 - 5.0 g/dL [facility] Alkaline Phosphatase 120(H) 39 - 117 U/L [facility] Blood Venous blood specimen / Unknown 07/20/2025 1:49 PM EST 07/20/2025 4:04 PM EST us Mildred Juarez DO LAB BLOOD ORDERABLES Final R esult Performing Organization Address [facility] Co de Phone Number [facility] [address] [place] [phone] * Lipid Panel, Standard (07/20/2025 1:49 PM EST) Triglycerides 113 <150 mg/dL [facility] Comment:Desirable Triglyceri de: less than 150 mg/dLBorderline High Triglyceride 150-199 mg/dLHigh Triglyceride: 200-499 mg/dLVery High Triglyceride: greater than or equal to 5OO mg/dL Cholesterol 157 <200 mg/dL [facility] Comment:Desirable Cholestero l: less than 200 mg/dLBorderline High Cholesterol: 200-239 mg/dLHigh Cholesterol: greater than 239 mg/dL LDL Cholesterol Calculated 76 <100 mg/dL [facility] Comment:Desirable LDL: less than 100 mg/dLNear Optimal/Above Optimal LDL: 110- 129 mg/dLBorderline High LDL: 130-159 mg/dLHigh LDL: 160-189 mg/dLVery High LDL: greater than or equal to 190 mg/dL HDL Cholesterol 59 >40 mg/dL [facility] Comment:Desirable HDL: great er than 40 mg/dL Note: This HDL assay may give artificially low results in patients with liver disease. Blood Venous blood specimen / Unknown 07/20/2025 1:49 PM EST 07/20/2025 4:04 PM EST us Mildred Juarez DO LAB BLOOD ORDERABLES Final R esult Performing Organization Address City/[facility]/ZIP Co de Phone Number [facility] [address] [place] [phone] * (ABNORMAL) Basic Metabolic Panel (07/20/2025 1:49 PM EST) Sodium 139 135 - 145 mmol/L [facility] Potassium 4.2 3.3 - 5.1 mmol/L [facility] Chloride 105 96 - 108 mmol/L [facility] Carbon Dioxide 27 22 - 29 mmol/L [facility] Anion Gap 11(L) 12 - 20 [facility] Urea Nitrogen (BUN) 13 9 - 16 mg/dL [facility] Creatinine, Serum 0.86 0.5 - 1.4 mg/dL [facility] Estimated Glomerular Filt Rate >60 [facility] Comment:Chronic Kidney Disea se: Estimated GFR < 60 mL/min/1.68l7Ihbqje Kidney Disease: Estimated GFR < 15 mL/min/1.73m2 Glucose 83 60 - 115 mg/dL [facility] Calcium 9.1 8.4 - 10.2 mg/dL [facility] Blood Venous blood specimen / Unknown 07/20/2025 1:49 PM EST 07/20/2025 4:04 PM EST us Mildred Juarez DO LAB BLOOD ORDERABLES Final R esult Performing Organization Address [facility]/ZIP Co de Phone Number [facility] [address] [place] [phone] * Hepatitis C Antibody Reflex (03/29/2023 10:32 AM EDT) Hepatitis C Antibody Nonreactive Nonreactive [facility] Comment:Antibodies to HCV no t detected; does not exclude early acuteHCV infection. 03/29/2023 10:3 2 AM EDT 03/29/2023 11:12 AM EDT us Yanelis Pennington MD LAB BLOOD ORDERABLES Final Result Performing Organization Address [facility] Co de Phone Number [facility] [address] [place] [phone] * HIV Ab/Ag (LUCIAN HADDAD) (03/29/2023 10:32 AM EDT) HIV AB/AG Nonreactive Nonreactive [facility] Comment:HIV-1 p24 Ag and/or HIV-1/HIV-2 Ab not detected.A test result that is nonreactive does not exclude thepossibility of exposure to or infection with HIV-1 and/orHIV-2. Nonreactive results in this assay for individualswith prior exposure to HIV-1 and/or HIV-2 may be due toantigen and antibody levels that are below the limit ofdetection of this assay.The [employer] P[employer] Supervisor HIV Ag/Ab Combo assay result andsupplemental assay results should be interpreted inconjunction with the patient's clinical presentation,history and other laboratory results. If the results areinconsistent with clinical evidence, additional testing issuggested to confirm the result. 03/29/2023 10:3 2 AM EDT 03/29/2023 11:12 AM EDT us Yanelis Pennington MD LAB BLOOD ORDERABLES Final Result [facility] [address] [place] [phone] from Last 3 Months or Most Recently Relevant to Health Maintenance Insurance [employer] Care Teams [employer] Relationship Specialty Start Date End Date Yanelis Marie MD [address] [place] [address] PCP - General Family Medicine 05/18/18
--- OUTSIDE RECORDS SUMMARY | 2025-09-04 17:25 | XMS_ITS | Encounter Summary ---
Author Organization [employer] Address [address] [facility] 7t [place] [address] Care Team Providers Care Weapons Specialist Name Role Phone Yanelis Marie MD Primary Care Provide r Encounter Details Date Type Department Care Team (Late st Contact Info) Description 07/23/2023 Telephone [facility] [address] [place], [place] [phone] Yanelis Marie MD [address] [place], [place] [phone] Social History Tobacco Use Types Packs/Day Years [...] Description 10/31/2025 10:30 AM EST Office Visit [facility] [address] [place] [address] Yanelis Marie MD [address] [place] [address] documented as of this encounter Visit Diagnoses Not on filedocumented in this encounter Additional Health Concerns Assessment Noted Time PHQ-9 Depression Total Score: 0 03/29/20 23 9:44 AM EDT documented as of this encounter Care Teams Weapons Specialist Relationship Specialty Start Date End Date Yanelis Marie MD [address] [place] [address] PCP - General Family Medicine 05/18/18 documented as of this encounter
--- OUTSIDE RECORDS SUMMARY | 2025-09-04 17:25 | XMS_ITS | Encounter Summary ---
Author Organization [employer] Address [address] [place] [address] Care Team Providers Care Information Clerk Brokerage Name Role Phone Yanelis Marie MD Primary Care Provide r Reason for Visit * Reason Onset Date Comments Med Refill 06/12/2025 Encounter Details Date Type Department Care Team ([facility] st Contact Info) Description 06/12/2025 Refill [facility] [address] [place] [address] Yanelis Marie MD [address] [place] [address] Social History Tobacco Use Types Packs/Day Years [...] solution auto-injector To be sent to: - [id number] - [place] - [address] [facility] documented in this encounter Plan of Treatment Upcoming Encounters Date Type Department Care Team (Late st Contact Info) Description 10/31/2025 10:30 AM EST Office Visit [facility] [address] [place] [address] Yanelis Marie MD [address] [place] [address] documented as of this encounter Visit Diagnoses Not on filedocumented in this encounter Additional Health Concerns Assessment Noted Time PHQ-9 Depression Total Score: 0 03/30/20 24 1:29 PM EDT documented as of this encounter Care Teams Information Clerk Brokerage Relationship Specialty Start Date End Date Yanelis Marie MD [address] [place] [address] PCP - General Family Medicine 05/18/18 documented as of this encounter
== END 2025-09-04 13:46 | disposition home or self-care (01) ==
LOC: HO.HGS 13:33
PROVIDERS: PCP Internal Medicine; Visit Provider Surgery
DX: T79.2XXA Traumatic secondary and recurrent hemorrhage and seroma, initial encounter (principal)
CPT/HCPCS: 99203